=== PATIENT | female | born 1960 | race Caucasian/White ===

== ENCOUNTER 2017-03-17 18:07 | Inpatient (IN) ==
[~2017-03-17 18:07] MED LIST: LEVOFLOXACIN 250 MG/50 ML BAG IV ONE
[2017-03-17] MEDS ORDERED: LEVOFLOXACIN 500 MG/100 ML BAG IV ONE (19:00)
[2017-03-17] MEDS ORDERED: 0.9 % SODIUM CHLORIDE 1,000 ML IV ONE (19:00)
--- NOTE | 2017-03-17 19:02 | Emergency Department Note ---
General Adult HPI - General Chief complaint: Recheck/Abnormal Lab/Rx Stated complaint: Cough, chest congestion Time Seen by Provider: 03/17/17 18:52 Source: patient Mode of arrival: ambulatory Limitations: no limitations - History of Present Illness HPI Narrative: This patient had Legionella pneumonia in January and was hospitalized for it. She was treated successfully. Recently she has had more cough and congestion and was told at the pulmonary clinic that her sputum culture was positive again for Legionella. She now comes into the emergency room for treatment. She has had cough and shortness of breath for the last 2 days. - Related Data Allergies Allergy/AdvReac Type Severity Reaction Status Date / Time Hydromorphone [From Dilaudid] AdvReac Verified 03/17/17 18:10 meperidine AdvReac Verified 03/17/17 18:23 Midodrine AdvReac Verified 03/17/17 18:23 nalbuphine AdvReac Verified 03/17/17 18:23 vancomycin AdvReac Verified 03/17/17 18:23 Review of Systems Constitutional: Denies: fever, chills Eyes: Denies: eye pain ENT ED: Denies: ear pain Cardiovascular: Denies: chest pain Respiratory: Reports: cough, dyspnea Gastrointestinal: Denies: abdominal pain, nausea Genitourinary: Denies: urgency Musculoskeletal: Denies: back pain Integumentary: Denies: rash Past Medical History - Past Medical History Medical history: Reports: COPD, diabetes Surgical history ED: Reports: cholecystectomy, hysterectomy, tonsillectomy, transplant (Kidney in ) Psychiatric history: Reports: anxiety, depression Physical Exam - General Limitations: no limitations General appearance: alert, in no apparent distress - Head Head exam: atraumatic, normocephalic - Eye Eye exam: Present: normal appearance - ENT ENT exam: normal exam - Neck Neck exam: Present: normal inspection - Chest Chest inspection: Present: normal inspection - Respiratory Respiratory exam: Present: other (Scattered rhonchi) - Cardiovascular Cardiovascular exam: Present: regular rate, normal rhythm, normal heart sounds - Abdominal Exam Abdominal exam: Present: soft. Absent: distention, tenderness - Neurological Exam Neurological exam: Present: alert, oriented X3 - Psychiatric Psychiatric exam: Present: normal affect, normal mood - Skin Skin exam: Present: warm, dry, intact Course Vital Signs Temperature 97.9 F 03/17/17 18:10 Pulse Rate 85 03/17/17 18:10 Respiratory Rate 20 03/17/17 18:10 Blood Pressure 101/56 03/17/17 18:10 Pulse Oximetry (%) 94 03/17/17 18:10 Temperature 97.9 F 03/17/17 18:10 Pulse Rate 74 03/17/17 19:05 Respiratory Rate 20 03/17/17 18:10 Blood Pressure 105/67 03/17/17 19:16 Pulse Oximetry (%) 93 03/17/17 19:05 Medical Decision Making - MDM Narrative Medical decision making narrative: Apparently this patient did have a sputum culture performed and was told today that it was positive for Legionella. She was given a prescription for tetracycline but because of her renal transplant concern about renal function and the family brought her down to [facility]. Have discussed case with Dr. Serra and she will be admitted to the hospital. - Lab Data Lab results reviewed: Yes I reviewed the patient's lab results. Result diagrams: 03/17/17 19:06 03/17/17 19:06 Lab Results 03/17/17 03/17/17 Range/Units 19:06 19:06 WBC 4.8 (4.5-11.0) K/mcL RBC 3.25 L (4.00-5.20) M/mcL Hgb 10.6 L (12.0-15.0) g/dL Hct 30.9 L (36.0-48.0) % MCV 95.0 (80.0-100.0) fL MCH 32.5 (26.0-34.0) pg MCHC 34.2 (31.0-36.0) g/dL RDW 13.4 (11.5-14.5) % Plt Count 108 L (140-440) K/mcL MPV 7.4 (7.4-10.4) fL Gran % 61.6 (38.0-78.0) % Lymph % (Auto) 31.8 (15.5-49.0) % [place] % (Auto) 4.9 (1.0-12.0) % Eos % (Auto) 1.4 (0.0-7.0) % Baso % (Auto) 0.3 (0.0-2.0) % Gran # 3.0 (1.8-8.0) K/mcL Lymph # 1.5 (1.5-4.8) K/mcL [place] # 0.2 (0.1-0.9) K/mcL Eos # 0.1 (0.0-0.7) K/mcL Baso # 0 (0.0-0.3) K/mcL Sodium 138 (133-145) mmol/L Potassium 4.1 (3.3-5.1) mmol/L Chloride 100 (96-108) mmol/L Carbon Dioxide 25 (22-30) mmol/L Anion Gap 13.0 (8-16) BUN 24 H (6-20) mg/dl Creatinine 1.6 H (0.6-1.1) mg/dl GFR Calculation 35 Glucose 122 H (70-105) mg/dL Calcium 8.5 L (8.6-10.4) mg/dl Total Bilirubin 0.4 (0.0-1.0) mg/dL AST 13 (0-37) U/l ALT 8 (0-40) U/l Alkaline Phosphatase 93 (39-117) U/L Total Protein 5.4 L (5.9-8.4) gm/dL Albumin 3.2 (3.2-5.2) gm/dL Globulin 2.2 (2.2-3.7) gm/dL Albumin/Globulin Ratio 1.5 (1.0-2.3) - Radiology Data Radiology results reviewed: Yes I reviewed the patient's radiology results. Disposition Clinical Impression: Legionella pneumonia Disposition: Xfer As Inpt ([facility]) Condition: Good Referrals: Belia Tamez ARNP [Primary Care Provider] - Time of Disposition: 20:21
[2017-03-17 19:44] LABS: Basophils # (Auto) 0 K/mcL (0.0-0.3); Basophils % (Auto) 0.3 % (0.0-2.0); Eosinophils # (Auto) 0.1 K/mcL (0.0-0.7); Eosinophils % (Auto) 1.4 % (0.0-7.0); Granulocytes % (Auto) 61.6 % (38.0-78.0); Lymphocytes # (Auto) 1.5 K/mcL (1.5-4.8); Lymphocytes % (Auto) 31.8 % (15.5-49.0); Mean Corpuscular HGB Conc 34.2 g/dL (31.0-36.0); Mean Corpuscular Hemoglobin 32.5 pg (26.0-34.0); Monocytes # (Auto) 0.2 K/mcL (0.1-0.9); Monocytes % (Auto) 4.9 % (1.0-12.0); Platelet Count 108 K/mcL (140-440); RBC 3.25 M/mcL (4.00-5.20); Red Cell Distribution Width 13.4 % (11.5-14.5)
[2017-03-17 20:01] LABS: ALT/SGPT 8 U/l (0-40); Albumin 3.2 gm/dL (3.2-5.2); Albumin/Globulin Ratio 1.5 (1.0-2.3); Alkaline Phosphatase 93 U/L (39-117); Blood Urea Nitrogen 24 mg/dl (6-20)
[2017-03-17] MEDS ORDERED: MAGNESIUM SULFATE 2 GM/50 ML BAG IV PRN (22:26)
[2017-03-17] MEDS ORDERED: traZODone HCL 50 MG TABLET PO PRN (22:26)
[2017-03-17] MEDS ORDERED: POTASSIUM CHLORIDE 20 MEQ PACKET PO PRN (22:26)
[2017-03-17] MEDS ORDERED: ONDANSETRON 4 MG/2 ML VIAL IV PRN (22:26)
[2017-03-17] MEDS ORDERED: guaiFENesin/CODEINE 10 ML UDC PO PRN (22:26)
[2017-03-17] MEDS ORDERED: LEVOFLOXACIN 750 MG/150 ML BAG IV SCH (22:26)
[2017-03-17] MEDS: 0.9 % SODIUM CHLORIDE 1,000 ML IV SCH (23:28)
[2017-03-17] MEDS: 0.9 % SODIUM CHLORIDE 10 ML SYRINGE IV SCH (23:28)
[2017-03-17] MEDS ORDERED: DEXTROSE 50% 50 ML VIAL IV PRN (23:33)
[2017-03-17] MEDS ORDERED: IPRATROPIUM/ALBUTEROL 3 ML AMPUL.NEB NEB ONE (23:43)
[2017-03-17] MEDS: IPRATROPIUM/ALBUTEROL 3 ML AMPUL.NEB NEB SCH (23:52)
[2017-03-17] MEDS ORDERED: LORazepam 1 MG TABLET ONE (23:56)
[2017-03-18] MEDS ORDERED: HEPARIN 5,000 UNIT/ML VIAL ONE (00:26)
[2017-03-18] MEDS: HEPARIN 5,000 UNIT/ML VIAL SQ SCH ×3 (00:29→21:41)
--- NOTE | 2017-03-18 00:40 | History and Physical Report ---
DATE OF ADMISSION: 03/17/2017 DATE OF ADMISSION: 03/17/2017 PRIMARY SURGEON: SANTO Cardozo REASON FOR ADMISSION: Positive Legionella sputum along with cough, shortness of breath. HISTORY OF CHIEF COMPLAINTS: The patient is a 67-year-old with known history of renal transplant on immunosuppressives. She recently had an episode of Legionella pneumonia the first week of January and was treated at [facility] for a total of 21 days after initial hospitalization. She was recovering at rehab at [place]. However, over the last couple of days the patient has gotten increasingly short of breath, weak. Repeat sputum cultures at the local lab revealed Legionella and subsequently patient was advised to return to the ER. Initial workup in the ER essentially unremarkable with normal white count. However, given immunosuppressive state and shortness of breath and risk of recurrent Legionella, patient carries a high mortality/morbidity risk. Hospitalist Service was consulted. The patient was started on Levaquin 500 mg dose in the ER. At the time of examination, the patient is accompanied with her significant other. He was able to provide half to most of the questions. The patient appears significantly fatigued, lethargic, but denies chest pain. She does endorse to increasing yellow productive sputum along with fatigue, lethargy, but no fever, diarrhea, dysuria, headache, or photophobia. She denies joint swelling, rash, glandular swelling, abdominal pain, nausea, vomiting. REVIEW OF SYSTEMS: Ten-point review of systems was performed and negative except the ones discussed above. PAST MEDICAL HISTORY: 1. Renal transplant secondary to polycystic kidney disease, currently on immunosuppressives. 2. Obstructive sleep apnea. 3. Diabetes mellitus type 2. 4. Neuropathy. 5. Hyperlipidemia 6. GERD. 7. Anxiety disorder. 8. History of chronic kidney disease with baseline creatinine of 1.2. CURRENT MEDICATIONS: 1. Regular insulin sliding scale. 2. Sertraline 150 mg daily. 3. Prednisone 5 daily. 4. Lorazepam 1 every 2. 5. Tamoxifen 20 daily. 6. Pregabalin 100 3 times a day. 7. Atorvastatin 10 at bedtime. 8. Ranitidine 150 daily. 9. Omeprazole 20. 10. Amitriptyline 50. 11. Lactulose 20 grams daily. ALLERGIES: 1. VANCOMYCIN. 3. MIDODRINE. 4. MEPERIDINE. 5. HYDROMORPHONE. SOCIAL HISTORY: The patient lives along with her significant other at [place]. She smokes 1-3 cigarettes a day and carries a [id number] smoking and no history of alcoholism. She sees primary care physician, SANTO Cardozo. FAMILY HISTORY: Significant for polycystic kidney and subsequent renal transplant in sister, grandfather diabetes, and mother with diabetes and obstructive sleep apnea. PHYSICAL EXAMINATION: GENERAL: The patient is fairly obese with BMI 42.6. Height 5 feet 1 inches. VITAL SIGNS: Blood pressure 130/85, respiratory rate 20, temperature 96.9, pulse 78, saturation 90 percent on 2 liters of oxygen. HEENT: Pupils symmetric. Oral cavity is dry. No ear or nose discharge. Head is normocephalic and atraumatic. NECK: No lymphadenopathy. CHEST: S1, S2 regular rhythm. Pansystolic murmur grade 2, more accentuated at the apical area. Diminished breath sounds at bases, no late inspiratory crackles or adventitious sounds. ABDOMEN: Soft, pendulous, hernia anterior abdominal wall left middle abdomen reducible, significant fat pannus. LOWER EXTREMITIES: No cyanosis or clubbing. No joint swelling. SKIN: No suspicious lesions. PSYCHIATRIC: Fatigued, lethargic, but cooperative. NEURO: Nonfocal, moving all four extremities. LABS AND IMAGING: White count 4.8, hemoglobin 10.6, platelets 108. Lactic acid 0.8. Sodium 130, potassium 4.1, creatinine 1.6, BUN 24. LFTs unremarkable. Procalcitonin pending. Legionella pneumophila urine antigen pending. X-ray chest: No acute process. ABG 7.36/54/59 on 2 liters of oxygen. ASSESSMENT AND PLAN: A 57-year-old with recurrent Legionella pneumonia in the setting of immunocompromised state. 1. Possible Legionella pneumonia SOFA score 2. Start patient on Levaquin and target antibiotic for 21 days. Continue close hemodynamic monitoring. 2. History of renal transplant. Continue steroids/prograf. Nephrology consult. 3. History of diabetes mellitus type 2. Continue base prandial insulin. 4. Hyperlipidemia. Continue statin. 5. Anxiety disorder. Continue sertraline/lorazepam. 6. Neuropathy. Continue Lyrica/amitriptyline. 7. Admit as inpatient. Anticipated stay over 48 hours. AA:natali Job ID: [id number] Doc ID: [id number] Hayden GALLAGHER
[2017-03-18] MEDS ORDERED: IPRATROPIUM/ALBUTEROL 3 ML AMPUL.NEB NEB ONE (03:37)
[2017-03-18] MEDS: IPRATROPIUM/ALBUTEROL 3 ML AMPUL.NEB NEB SCH ×6 (03:41→23:02)
[2017-03-18] MEDS: 0.9 % SODIUM CHLORIDE 10 ML SYRINGE IV SCH ×3 (05:15→21:50)
[2017-03-18 05:18] LABS: Mean Cell Volume 95.3 fL (80.0-100.0); Mean Corpuscular HGB Conc 34.1 g/dL (31.0-36.0); Mean Corpuscular Hemoglobin 32.5 pg (26.0-34.0); Platelet Count 104 K/mcL (140-440); RBC 3.15 M/mcL (4.00-5.20); Red Cell Distribution Width 13.9 % (11.5-14.5)
[2017-03-18 05:32] LABS: ALT/SGPT 8 U/l (0-40); Albumin 3.4 gm/dL (3.2-5.2); Albumin/Globulin Ratio 1.8 (1.0-2.3); Alkaline Phosphatase 86 U/L (39-117); Bilirubin,Direct < 0.2 mg/dL (0.0-0.3); Blood Urea Nitrogen 25 mg/dl (6-20); Gamma Glutamyl Transpeptidase 16 U/L (5-36); Uric Acid 8.2 mg/dL (2.5-8.0)
[2017-03-18 06:42] LABS: Eosinophils % (Manual) 1 % (0-7); Lymphocytes % 45 % (15-49); Monocytes % (Manual) 6 % (1-12); Platelet Estimate DECREASED (NORMAL); RBC Morphology NORMAL (NORMAL); Segmented Neutrophils % 48 % (38-78)
--- NOTE | 2017-03-18 07:53 | XRay Report ---
HISTORY: Reason for Exam:cough , history of Legionaires disease FINDINGS: Prominent interstitial markings are present throughout both lungs. Lung volumes are normal. There is no consolidating infiltrate or pleural effusion. The heart size is normal. No adenopathy is detected. There is a Port-A-Cath placed into the superior vena cava. Pedicle screws are noted in the mid lumbar spine. No prior study is available for comparison. IMPRESSION: Prominent lung markings bilaterally. This is a nonspecific finding which could be due to infection, noninfectious inflammation or pulmonary vascular congestion Interpreted and Authenticated by: Flakito Polo 03/18/17
[2017-03-18] MEDS: INSULIN LISPRO 1 UNIT/0.01 ML UNIT SQ SCH ×4 (08:04→21:55)
[2017-03-18] MEDS: TAMOXIFEN 10 MG TABLET PO SCH (08:13)
[2017-03-18] MEDS: PREGABALIN 100 MG CAPSULE PO SCH ×3 (08:13→21:39)
[2017-03-18] MEDS: MAGNESIUM OXIDE 400 MG TABLET PO SCH ×3 (08:13→21:40)
[2017-03-18] MEDS: FAMOTIDINE 20 MG TABLET PO SCH (08:14)
[2017-03-18] MEDS: HYDROCHLOROTHIAZIDE 12.5 MG CAPSULE PO SCH (08:14)
[2017-03-18] MEDS: SERTRALINE 50 MG TABLET PO SCH (08:14)
[2017-03-18] MEDS: predniSONE 5 MG TABLET PO SCH (08:14)
[2017-03-18] MEDS: MULTIVIT,THER IRON,CA,FA & MIN 1 TABLET PO SCH (08:14)
[2017-03-18] MEDS: DOCUSATE SODIUM 100 MG CAPSULE PO SCH ×3 (08:14→21:39)
[2017-03-18] MEDS: morphine 30 MG TAB.SR.12H PO SCH (08:14)
[2017-03-18] MEDS: morphine 15 MG TAB.SR.12H PO SCH ×2 (08:15→21:39)
[2017-03-18] MEDS ORDERED: LACTULOSE 20 GM/30 ML ORAL.SOL PO SCH (09:00)
[2017-03-18] MEDS ORDERED: TACROLIMUS 1 MG CAPSULE PO SCH (09:00)
[2017-03-18] MEDS: PANTOPRAZOLE 40 MG TABLET PO SCH (09:36)
--- NOTE | 2017-03-18 09:52 | Internal Med Progress Note ---
Medical - PN: Subj Patient information: Note initiated : 03/18/17 at 9:48 am Service Date, if different from initiated Date: [] Patient: Betsy Dean 57 y/o F admitted on 03/17/17 for Cough, Chest Congestion/Legionella Pneumonia. Chief Complaint: [] Interval history: [birth year]-59-noal-old admitted with recurrent Legionella pneumonia. History of renal transplant on immunosuppressives. recent Legionella pneumonia last month treated on oral tetracycline. start Levaquin for 21 days. Baseline creatinine 1.2 current creatinine 1.6 03/18- patient doing well. No overnight events. No fever chills nausea vomiting or worsening SOB. continue antibiotic coverage. urine Legionella antigen pending. continue pulmonary toilet. Nephrology consult for management of immunosuppressive - Constitutional Vitals: Vital Signs Temp Pulse Resp BP Pulse Ox 97.3 F 68 18 111/76 96 03/18/17 06:14 03/18/17 07:21 03/18/17 07:21 03/18/17 06:14 03/18/17 07:21 Period Temp Pulse Resp BP Sys/Willard Pulse Ox Last 24 Hr 97.3 F-97.9 F 65-78 18-20 98-113/61-85 91-96 Intake and Output 03/17/17 03/18/17 03/18/17 21:59 05:59 13:59 Intake Total 180 / 180 Output Total 350 / 350 700 / 700 Balance -170 / -170 -700 / -700 Intake & Output: Intake & Output 03/17/17 03/18/17 03/18/17 21:59 05:59 13:59 Intake Total 180 / 180 Output Total 350 / 350 700 / 700 Balance -170 / -170 -700 / -700 Intake: Oral 180 / 180 Output: Void Amount 350 / 350 700 / 700 General appearance: no acute distress Exam: fatigued and lethargic Nonlabored breathing morbidly obese no pallor Medical - PN: Obj Da - Labs CBC & Chem 7: 03/18/17 04:14 03/18/17 04:14 Labs: Abnormal Lab Results 03/18/17 03/18/17 04:14 04:14 WBC 3.7 L RBC 3.15 L Hgb 10.2 L Hct 30.0 L Plt Count 104 L Anion Gap 7.0 L BUN 25 H Creatinine 1.5 H Uric Acid 8.2 H Calcium 8.5 L Total Protein 5.3 L Globulin 1.9 L Triglycerides 185 H Meds: Medications Acetaminophen (Tylenol) 650 mg PO Q4-6HP PRN PRN Reason: PAIN/FEVER > 101 Albuterol/Ipratropium (Duoneb) 3 ml NEB Q4HRT [facility] Last Admin: 03/18/17 07:20 Dose: 3 ml Amitriptyline HCl (Elavil) 50 mg PO HS CHANDU Atorvastatin Calcium (Lipitor) 10 mg PO HS [facility] Dextrose (Dextrose 50%) 0 ml IV UD PRN PRN Reason: Hypoglycemia Diagnostic Test (Pha) (Accu-Chek) 1 each FS ACHS [facility] Last Admin: 03/18/17 08:03 Dose: 1 each Docusate Sodium (Colace) 100 mg PO BID [facility] Last Admin: 03/18/17 08:14 Dose: 100 mg Ergocalciferol (Drisdol) 50,000 unit PO Slade@0900 [facility] Famotidine (Pepcid) 20 mg PO DAILY [facility] Last Admin: 03/18/17 08:14 Dose: 20 mg Guaifenesin/Codeine Phosphate (Robitussin Ac) 10 ml PO Q4HP PRN PRN Reason: Cough Heparin Sodium (Porcine) (Heparin) 5,000 unit SQ Q12 [facility] Last Admin: 03/18/17 08:13 Dose: 5,000 unit Hydrochlorothiazide (Oretic) 12.5 mg PO DAILY [facility] Last Admin: 03/18/17 08:14 Dose: 12.5 mg Magnesium Sulfate (Magnesium Sulfate) 2 gm in 50 mls @ 50 mls/hr IV UD PRN PRN Reason: MG = or < 1.7 Sodium Chloride (Sodium Chloride 0.9%) 1,000 mls @ 50 mls/hr IV .Q20H [facility] Stop: 03/20/17 10:25 Last Admin: 03/17/17 23:28 Dose: 50 mls/hr Levofloxacin (Levaquin) 750 mg in 150 mls @ 100 mls/hr IV Q48H [facility] Insulin Human Lispro (Humalog) 0 unit SQ ACHS CHANDU PRN Reason: Protocol Last Admin: 03/18/17 08:04 Dose: Not Given Iron Carb/Multivit/Flotation Tender Helper/Folic Acid (Multivitamin W/Minerals) 1 tab PO DAILY [facility] Last Admin: 03/18/17 08:14 Dose: 1 tab Lactulose (Cephulac) 20 gm PO Q48@2100 [facility] Lorazepam (Ativan) 1 mg PO Q12HP PRN PRN Reason: Anxiety Magnesium Oxide (Magnesium Oxide) 800 mg PO TID [facility] Last Admin: 03/18/17 08:13 Dose: 800 mg Morphine Sulfate (Ms Contin) 15 mg PO BID [facility] Last Admin: 03/18/17 08:15 Dose: 15 mg Morphine Sulfate (Ms Contin) 30 mg PO QAM [facility] Last Admin: 03/18/17 08:14 Dose: 30 mg Non-Formulary Medication (Aripiprazole [Abilify]) 2 mg PO QAM [facility] Non-Formulary Medication (Linagliptin [Tradjenta]) 5 mg PO QAM [facility] Ondansetron HCl (Zofran) 4 mg IV Q4-6HP PRN PRN Reason: Nausea And Vomiting Pantoprazole Sodium (Protonix) 40 mg PO QAMAC [facility] Last Admin: 03/18/17 09:36 Dose: 40 mg Potassium Chloride (Klor-Con) 40 meq PO DAILYP PRN PRN Reason: K+ < 3.5 Prednisone (Prednisone) 5 mg PO QAMCC [facility] Last Admin: 03/18/17 08:14 Dose: 5 mg Pregabalin (Lyrica) 100 mg PO TID [facility] Last Admin: 03/18/17 08:13 Dose: 100 mg Senna/Docusate Sodium (Senna Plus Tablet) 1 tab PO HS [facility] Last Admin: 03/18/17 00:00 Dose: Not Given Sertraline HCl (Zoloft) 150 mg PO DAILY [facility] Last Admin: 03/18/17 08:14 Dose: 150 mg Sodium Chloride (Saline Flush) 10 ml IV Q8 [facility] Last Admin: 03/18/17 05:15 Dose: Not Given Tacrolimus (Tacrolimus) 3 mg PO BID@0700,1900 [facility] Tamoxifen Citrate (Tamoxifen) 20 mg PO DAILY [facility] Last Admin: 03/18/17 08:13 Dose: 20 mg Trazodone HCl (Desyrel) 50 mg PO HSP PRN PRN Reason: Insomnia Medical - PN: A/P - Time Spent With Patient Total time spent is greater than 50% in coordination of care (as documented) at patient's floor/unit and/or counseling patient: 25 - 35 minutes (1) Legionella pneumonia Status: Acute Assessment and plan: * Legionella pneumonia-continue IV quinolone for 21 days * history of renal transplant-on immunosuppressives. nephrology consult * Chronic kidney disease-creatinine 1.5 * DM type II on basal prandial insulin/linagliptin * anxiety on sertraline/orazepam * Neuropathy and amitriptyline/pregabalin * gERD on PPI/h2 antagonist * hyperlipidemia statin * chronic pain On morphine * hTN on hydrochlorothiazide * full code Plan * continue antibiotic coverage * nephrology consult * pre-existing medical condition management as above * Possible discharge in 24 hours if clinically improved on 21 days antibiotics Current Visit: Yes Medical - PN: Qual - VTE Deep Vein Thrombosis/Pulmonary Embolism Present on Admission: No
[2017-03-18] MEDS: sitaGLIPtin 50 MG TABLET PO SCH (11:29)
[2017-03-18] MEDS: ARIPIPRAZOLE 5 MG TABLET PO SCH (11:29)
[2017-03-18] MEDS: 0.9 % SODIUM CHLORIDE 1,000 ML IV SCH (17:25)
[2017-03-18] MEDS: TACROLIMUS 1 MG CAPSULE PO SCH (19:21)
[2017-03-18] MEDS: AMITRIPTYLINE 25 MG TABLET PO SCH (21:40)
[2017-03-18] MEDS: ATORVASTATIN 20 MG TABLET PO SCH (21:40)
[2017-03-18] MEDS: SENNOSIDES/DOCUSATE SODIUM 1 TAB TABLET PO SCH ×2 (21:41)
[2017-03-19] MEDS: IPRATROPIUM/ALBUTEROL 3 ML AMPUL.NEB NEB SCH ×6 (03:51→22:29)
[2017-03-19] MEDS: 0.9 % SODIUM CHLORIDE 10 ML SYRINGE IV SCH ×3 (04:47→21:10)
[2017-03-19 06:00] LABS: Mean Cell Volume 95.6 fL (80.0-100.0); Mean Corpuscular HGB Conc 33.8 g/dL (31.0-36.0); Mean Corpuscular Hemoglobin 32.4 pg (26.0-34.0); Platelet Count 104 K/mcL (140-440); RBC 3.11 M/mcL (4.00-5.20); Red Cell Distribution Width 13.9 % (11.5-14.5)
[2017-03-19 06:24] LABS: ALT/SGPT 9 U/l (0-40); Albumin/Globulin Ratio 1.3 (1.0-2.3); Alkaline Phosphatase 95 U/L (39-117); Bilirubin,Direct < 0.2 mg/dL (0.0-0.3); Blood Urea Nitrogen 26 mg/dl (6-20); Gamma Glutamyl Transpeptidase 18 U/L (5-36); Magnesium 1.9 mg/dL (1.6-2.5); Uric Acid 8.6 mg/dL (2.5-8.0)
[2017-03-19 07:36] LABS: Eosinophils % (Manual) 2 % (0-7); Lymphocytes % 40 % (15-49); Monocytes % (Manual) 4 % (1-12); Platelet Estimate NORMAL (NORMAL); RBC Morphology NORMAL (NORMAL); Segmented Neutrophils % 54 % (38-78)
[2017-03-19] MEDS: TACROLIMUS 1 MG CAPSULE PO SCH ×2 (07:59→19:18)
[2017-03-19] MEDS: INSULIN LISPRO 1 UNIT/0.01 ML UNIT SQ SCH ×4 (08:15→21:16)
[2017-03-19] MEDS: PANTOPRAZOLE 40 MG TABLET PO SCH (08:16)
[2017-03-19] MEDS: predniSONE 5 MG TABLET PO SCH (08:16)
[2017-03-19] MEDS: ARIPIPRAZOLE 5 MG TABLET PO SCH (08:16)
[2017-03-19] MEDS: DOCUSATE SODIUM 100 MG CAPSULE PO SCH ×2 (08:16→21:07)
[2017-03-19] MEDS: morphine 15 MG TAB.SR.12H PO SCH ×2 (08:17→21:08)
[2017-03-19] MEDS: sitaGLIPtin 50 MG TABLET PO SCH (08:17)
[2017-03-19] MEDS: morphine 30 MG TAB.SR.12H PO SCH (08:17)
[2017-03-19] MEDS: PREGABALIN 100 MG CAPSULE PO SCH ×3 (08:17→21:19)
[2017-03-19] MEDS: MAGNESIUM OXIDE 400 MG TABLET PO SCH ×3 (08:17→21:08)
[2017-03-19] MEDS: HYDROCHLOROTHIAZIDE 12.5 MG CAPSULE PO SCH (08:18)
[2017-03-19] MEDS: MULTIVIT,THER IRON,CA,FA & MIN 1 TABLET PO SCH (08:18)
[2017-03-19] MEDS: FAMOTIDINE 20 MG TABLET PO SCH (08:19)
[2017-03-19] MEDS: TAMOXIFEN 10 MG TABLET PO SCH (08:19)
[2017-03-19] MEDS: SERTRALINE 50 MG TABLET PO SCH (08:19)
--- NOTE | 2017-03-19 09:02 | XRay Report ---
HISTORY: Reason for Exam:Interval Change , cough and nonspecific interstitial pulmonary disease FINDINGS: There are worsening bilateral interstitial opacities throughout both lungs. There is no lobar consolidation or pleural effusion. The heart size is normal. IMPRESSION: Worsening interstitial infiltrates bilaterally which could be due to pneumonia, hypersensitivity reaction or congestive heart failure Interpreted and Authenticated by: Flakito Polo 03/19/17
[2017-03-19] MEDS: HEPARIN 5,000 UNIT/ML VIAL SQ SCH (10:35)
[2017-03-19] MEDS: LEVOFLOXACIN 750 MG/150 ML BAG IV SCH (10:53)
[2017-03-19] MEDS: 0.9 % SODIUM CHLORIDE 1,000 ML IV SCH ×2 (15:21→21:11)
[2017-03-19] MEDS: ACETAMINOPHEN 325 MG TABLET PO PRN (16:05)
[2017-03-19] MEDS ORDERED: FONDAPARINUX SODIUM 2.5 MG/0.5 ML SYRINGE IV ONE (16:38)
[2017-03-19] MEDS: LACTULOSE 20 GM/30 ML ORAL.SOL PO SCH (21:07)
[2017-03-19] MEDS: ATORVASTATIN 20 MG TABLET PO SCH (21:07)
[2017-03-19] MEDS: AMITRIPTYLINE 25 MG TABLET PO SCH (21:08)
[2017-03-19] MEDS: SENNOSIDES/DOCUSATE SODIUM 1 TAB TABLET PO SCH (21:08)
[2017-03-20] MEDS: IPRATROPIUM/ALBUTEROL 3 ML AMPUL.NEB NEB SCH ×6 (03:01→23:35)
[2017-03-20 04:33] LABS: Mean Cell Volume 94.7 fL (80.0-100.0); Mean Corpuscular HGB Conc 34.5 g/dL (31.0-36.0); Mean Corpuscular Hemoglobin 32.6 pg (26.0-34.0); Platelet Count 107 K/mcL (140-440); RBC 3.05 M/mcL (4.00-5.20); Red Cell Distribution Width 13.8 % (11.5-14.5)
[2017-03-20 04:44] LABS: ALT/SGPT 10 U/l (0-40); Albumin 3.3 gm/dL (3.2-5.2); Albumin/Globulin Ratio 1.4 (1.0-2.3); Alkaline Phosphatase 95 U/L (39-117); Bilirubin,Direct < 0.2 mg/dL (0.0-0.3); Blood Urea Nitrogen 23 mg/dl (6-20); Gamma Glutamyl Transpeptidase 19 U/L (5-36); Magnesium 1.9 mg/dL (1.6-2.5); Uric Acid 7.6 mg/dL (2.5-8.0)
[2017-03-20] MEDS: 0.9 % SODIUM CHLORIDE 10 ML SYRINGE IV SCH ×3 (05:07→21:01)
[2017-03-20 05:21] LABS: Band Neutrophils % 3 % (0-10); Lymphocytes % 38 % (15-49); Platelet Estimate DECREASED (NORMAL); RBC Morphology NORMAL (NORMAL); Segmented Neutrophils % 59 % (38-78)
[2017-03-20] MEDS: TACROLIMUS 1 MG CAPSULE PO SCH ×2 (07:03→18:42)
[2017-03-20] MEDS: PANTOPRAZOLE 40 MG TABLET PO SCH (07:03)
[2017-03-20] MEDS: predniSONE 5 MG TABLET PO SCH (07:04)
[2017-03-20] MEDS: INSULIN LISPRO 1 UNIT/0.01 ML UNIT SQ SCH ×4 (07:27→20:59)
[2017-03-20] MEDS: ARIPIPRAZOLE 5 MG TABLET PO SCH (08:27)
[2017-03-20] MEDS: FAMOTIDINE 20 MG TABLET PO SCH (08:28)
[2017-03-20] MEDS: HYDROCHLOROTHIAZIDE 12.5 MG CAPSULE PO SCH (08:29)
[2017-03-20] MEDS: DOCUSATE SODIUM 100 MG CAPSULE PO SCH ×2 (08:30→20:45)
[2017-03-20] MEDS: MULTIVIT,THER IRON,CA,FA & MIN 1 TABLET PO SCH (08:30)
[2017-03-20] MEDS: MAGNESIUM OXIDE 400 MG TABLET PO SCH ×3 (08:30→21:00)
[2017-03-20] MEDS: SERTRALINE 50 MG TABLET PO SCH (08:30)
[2017-03-20] MEDS: sitaGLIPtin 50 MG TABLET PO SCH (08:30)
[2017-03-20] MEDS: morphine 30 MG TAB.SR.12H PO SCH (08:31)
[2017-03-20] MEDS: TAMOXIFEN 10 MG TABLET PO SCH (08:31)
[2017-03-20] MEDS ORDERED: ERGOCALCIFEROL (VITAMIN D2) 50,000 UNIT CAPSULE PO SCH (09:00)
--- NOTE | 2017-03-20 09:16 | Internal Med Progress Note ---
Medical - PN: Subj Patient information: Note initiated : 03/19/17 at 11:13 am Patient: Betsy Dean 57 y/o F admitted on 03/17/17 for Cough, Chest Congestion/Legionella Pneumonia. Chief Complaint: Interval history: 03/[id number]-dibg-old admitted with recurrent Legionella pneumonia. History of renal transplant on immunosuppressives. recent Legionella pneumonia last month treated on oral tetracycline. start Levaquin for 21 days. Baseline creatinine 1.2 current creatinine 1.6 03/18- patient doing well. No overnight events. No fever chills nausea vomiting or worsening SOB. continue antibiotic coverage. urine Legionella antigen pending. continue pulmonary toilet. Nephrology consult for management of immunosuppressives 03/19- patient feeling better. Klebsiella oxytoca on sputum culture. Legionella antigen pending. Continue Levaquin. White count downtrending. Feels a lot better. Ongoing physical therapy. creatinine down to 1.5 - Constitutional Vitals: Vital Signs Temp Pulse Resp BP Pulse Ox 97.3 F 68 20 138/87 93 03/20/17 07:10 03/20/17 07:07 03/20/17 08:00 03/20/17 07:10 03/20/17 07:10 Period Temp Pulse Resp BP Sys/Willard Pulse Ox Last 24 Hr 97.0 F-98.0 F 67-77 16-22 108-144/70-87 93-97 Intake and Output 03/19/17 03/20/17 03/20/17 21:59 05:59 13:59 Intake Total 780 / 780 0 / 0 600 / 600 Output Total 300 / 300 800 / 800 Balance 480 / 480 -800 / -800 600 / 600 Weight 260 lb Intake & Output: Intake & Output 03/19/17 03/20/17 03/20/17 21:59 05:59 13:59 Intake Total 780 / 780 0 / 0 600 / 600 Output Total 300 / 300 800 / 800 Balance 480 / 480 -800 / -800 600 / 600 Weight 260 lb Intake: Oral 780 / 780 0 / 0 600 / 600 Output: Void Amount 300 / 300 800 / 800 Other: Meal Chocolate pudding and 2 pkgs Juanito crackers Breakfast Percent of Meal Consumed 100% 100% Feeding Ability Independent # Voids 1 General appearance: morbidly obese, no acute distress Exam: Alert oriented nonlabored breathing Left posterior chest minimal crackles Obese Medical - PN: Obj Da - Labs CBC & Chem 7: 03/20/17 03:35 03/20/17 03:35 Labs: Abnormal Lab Results 03/20/17 03/20/17 03/19/17 03:35 03:35 04:30 WBC 2.3 L RBC 3.05 L Hgb 10.0 L Hct 28.9 L Plt Count 107 L MPV 7.2 L Anion Gap 7.0 L BUN 23 H 26 H Creatinine 1.4 H 1.5 H Glucose 133 H 140 H Uric Acid 8.6 H Calcium 8.5 L Total Protein 5.7 L 5.4 L Albumin 3.0 L Globulin Triglycerides 180 H 167 H 03/19/17 03/18/17 03/18/17 04:30 04:14 04:14 WBC 2.7 L 3.7 L RBC 3.11 L 3.15 L Hgb 10.1 L 10.2 L Hct 29.8 L 30.0 L Plt Count 104 L 104 L MPV Anion Gap 7.0 L BUN 25 H Creatinine 1.5 H Glucose Uric Acid 8.2 H Calcium 8.5 L Total Protein 5.3 L Albumin Globulin 1.9 L Triglycerides 185 H Meds: Medications Acetaminophen (Tylenol) 650 mg PO Q4-6HP PRN PRN Reason: PAIN/FEVER > 101 Last Admin: 03/19/17 16:05 Dose: 650 mg Albuterol/Ipratropium (Duoneb) 3 ml NEB Q4HRT [facility] Last Admin: 03/20/17 07:07 Dose: 3 ml Amitriptyline HCl (Elavil) 50 mg PO HS [facility] Last Admin: 03/19/17 21:08 Dose: 50 mg Atorvastatin Calcium (Lipitor) 10 mg PO HS [facility] Last Admin: 03/19/17 21:07 Dose: 10 mg Dextrose (Dextrose 50%) 0 ml IV UD PRN PRN Reason: Hypoglycemia Diagnostic Test (Pha) (Accu-Chek) 1 each FS ACHS [facility] Last Admin: 03/20/17 07:06 Dose: 1 each Docusate Sodium (Colace) 100 mg PO BID [facility] Last Admin: 03/20/17 08:30 Dose: Not Given Ergocalciferol (Drisdol) 50,000 unit PO Slade@0900 [facility] Famotidine (Pepcid) 20 mg PO DAILY [facility] Last Admin: 03/20/17 08:28 Dose: 20 mg Fondaparinux (Arixtra) 2.5 mg SQ DAILY [facility] Guaifenesin/Codeine Phosphate (Robitussin Ac) 10 ml PO Q4HP PRN PRN Reason: Cough Hydrochlorothiazide (Oretic) 12.5 mg PO DAILY [facility] Last Admin: 03/20/17 08:29 Dose: 12.5 mg Magnesium Sulfate (Magnesium Sulfate) 2 gm in 50 mls @ 50 mls/hr IV UD PRN PRN Reason: MG = or < 1.7 Sodium Chloride (Sodium Chloride 0.9%) 1,000 mls @ 50 mls/hr IV .Q20H [facility] Stop: 03/20/17 10:25 Last Admin: 03/19/17 21:11 Dose: 50 mls/hr Levofloxacin (Levaquin) 750 mg in 150 mls @ 100 mls/hr IV Q48H [facility] Last Admin: 03/19/17 10:53 Dose: 100 mls/hr Insulin Human Lispro (Humalog) 0 unit SQ ACHS [facility] PRN Reason: Protocol Last Admin: 03/20/17 07:27 Dose: Not Given Iron Carb/Multivit/[employer]/Folic Acid (Multivitamin W/Minerals) 1 tab PO DAILY [facility] Last Admin: 03/20/17 08:30 Dose: 1 tab Lactulose (Cephulac) 20 gm PO Q48@2100 [facility] Last Admin: 03/19/17 21:07 Dose: 20 gm Lorazepam (Ativan) 1 mg PO Q12HP PRN PRN Reason: Anxiety Magnesium Oxide (Magnesium Oxide) 800 mg PO TID [facility] Last Admin: 03/20/17 08:30 Dose: 800 mg Morphine Sulfate (Ms Contin) 30 mg PO QAM [facility] Last Admin: 03/20/17 08:31 Dose: 30 mg Morphine Sulfate (Ms Contin) 15 mg PO BID@1200,2100 [facility] Last Admin: 03/19/17 21:08 Dose: 15 mg Ondansetron HCl (Zofran) 4 mg IV Q4-6HP PRN PRN Reason: Nausea And Vomiting Pantoprazole Sodium (Protonix) 40 mg PO QAMAC [facility] Last Admin: 03/20/17 07:03 Dose: 40 mg Potassium Chloride (Klor-Con) 40 meq PO DAILYP PRN PRN Reason: K+ < 3.5 Prednisone (Prednisone) 5 mg PO QAC [facility] Last Admin: 03/20/17 07:04 Dose: 5 mg Pregabalin (Lyrica) 100 mg PO TID [facility] Last Admin: 03/19/17 21:19 Dose: 100 mg Senna/Docusate Sodium (Senna Plus Tablet) 1 tab PO HS [facility] Last Admin: 03/19/17 21:08 Dose: 1 tab Sertraline HCl (Zoloft) 150 mg PO DAILY [facility] Last Admin: 03/20/17 08:30 Dose: 150 mg Sitagliptin Phosphate (Januvia) 50 mg PO DAILY [facility] Last Admin: 03/20/17 08:30 Dose: 50 mg Sodium Chloride (Saline Flush) 10 ml IV Q8 [facility] Last Admin: 03/20/17 05:07 Dose: Not Given Tacrolimus (Tacrolimus) 3 mg PO BID@0700,1900 [facility] Last Admin: 03/20/17 07:03 Dose: 3 mg Tamoxifen Citrate (Tamoxifen) 20 mg PO DAILY [facility] Last Admin: 03/20/17 08:31 Dose: 20 mg Trazodone HCl (Desyrel) 50 mg PO HSP PRN PRN Reason: Insomnia Last Admin: 03/18/17 23:53 Dose: 50 mg Medical - PN: A/P - Time Spent With Patient Total time spent is greater than 50% in coordination of care (as documented) at patient's floor/unit and/or counseling patient: 25 - 35 minutes (1) Legionella pneumonia Status: Acute Assessment and plan: * history of Legionella pneumonia-continue IV quinolone, however sputum cultures from [place] reveals Klebsiella. continue antibiotic coverage. Await Legionella repeat urine antigen * history of renal transplant-on immunosuppressives. nephrology on board * Chronic kidney disease-creatinine 1.5 * DM type II on basal prandial insulin/linagliptin * anxiety on sertraline/orazepam * Neuropathy and amitriptyline/pregabalin * gERD on PPI/h2 antagonist * hyperlipidemia statin * chronic pain On morphine * hTN on hydrochlorothiazide * full code Plan * continue antibiotic coverage * await further testing for Legionella * renal issues/transplant meds management per nephrology * pre-existing medical condition management as above Current Visit: Yes Medical - PN: Qual - VTE Deep Vein Thrombosis/Pulmonary Embolism Present on Admission: No
--- NOTE | 2017-03-20 09:21 | Internal Med Progress Note ---
Medical - PN: Subj Patient information: Note initiated : 03/20/17 at 9:18 am Service Date, if different from initiated Date: [] Patient: Betsy Dean 57 y/o F admitted on 03/17/17 for Cough, Chest Congestion/Legionella Pneumonia. Chief Complaint: [] Interval history: 03/1788-60-dyzw-old admitted with recurrent Legionella pneumonia. History of renal transplant on immunosuppressives. recent Legionella pneumonia last month treated on oral tetracycline. start Levaquin for 21 days. Baseline creatinine 1.2 current creatinine 1.6 03/18- patient doing well. No overnight events. No fever chills nausea vomiting or worsening SOB. continue antibiotic coverage. urine Legionella antigen pending. continue pulmonary toilet. Nephrology consult for management of immunosuppressives 03/19- patient feeling better. Klebsiella oxytoca on sputum culture. Legionella antigen pending. Continue Levaquin. White count downtrending. Feels a lot better. Ongoing physical therapy. creatinine down to 1.5 03/20-patient doing well. No overnight events. Feels fatigued and lethargic. Ongoing physical therapy. creatinine 1.4. Possible discharge in 24 hours. no significant changes since previous day. - Constitutional Vitals: Vital Signs Temp Pulse Resp BP Pulse Ox 97.3 F 68 20 138/87 93 03/20/17 07:10 03/20/17 07:07 03/20/17 08:00 03/20/17 07:10 03/20/17 07:10 Period Temp Pulse Resp BP Sys/Willard Pulse Ox Last 24 Hr 97.0 F-98.0 F 67-77 16-22 108-144/70-87 93-97 Intake and Output 03/19/17 03/20/17 03/20/17 21:59 05:59 13:59 Intake Total 780 / 780 0 / 0 600 / 600 Output Total 300 / 300 800 / 800 Balance 480 / 480 -800 / -800 600 / 600 Weight 260 lb Intake & Output: Intake & Output 03/19/17 03/20/17 03/20/17 21:59 05:59 13:59 Intake Total 780 / 780 0 / 0 600 / 600 Output Total 300 / 300 800 / 800 Balance 480 / 480 -800 / -800 600 / 600 Weight 260 lb Intake: Oral 780 / 780 0 / 0 600 / 600 Output: Void Amount 300 / 300 800 / 800 Other: Meal Chocolate pudding and 2 pkgs Juanito crackers Breakfast Percent of Meal Consumed 100% 100% Feeding Ability Independent # Voids 1 General appearance: cooperative, no acute distress Exam: Alert and oriented nonlabored breathing nondistended abdomen Medical - PN: Obj Da - Labs CBC & Chem 7: 03/20/17 03:35 03/20/17 03:35 Labs: Abnormal Lab Results 03/20/17 03/20/17 03/19/17 03:35 03:35 04:30 WBC 2.3 L RBC 3.05 L Hgb 10.0 L Hct 28.9 L Plt Count 107 L MPV 7.2 L Anion Gap 7.0 L BUN 23 H 26 H Creatinine 1.4 H 1.5 H Glucose 133 H 140 H Uric Acid 8.6 H Calcium 8.5 L Total Protein 5.7 L 5.4 L Albumin 3.0 L Globulin Triglycerides 180 H 167 H 03/19/17 03/18/17 03/18/17 04:30 04:14 04:14 WBC 2.7 L 3.7 L RBC 3.11 L 3.15 L Hgb 10.1 L 10.2 L Hct 29.8 L 30.0 L Plt Count 104 L 104 L MPV Anion Gap 7.0 L BUN 25 H Creatinine 1.5 H Glucose Uric Acid 8.2 H Calcium 8.5 L Total Protein 5.3 L Albumin Globulin 1.9 L Triglycerides 185 H Meds: Medications Acetaminophen (Tylenol) 650 mg PO Q4-6HP PRN PRN Reason: PAIN/FEVER > 101 Last Admin: 03/19/17 16:05 Dose: 650 mg Albuterol/Ipratropium (Duoneb) 3 ml NEB Q4HRT [facility] Last Admin: 03/20/17 07:07 Dose: 3 ml Amitriptyline HCl (Elavil) 50 mg PO HS [facility] Last Admin: 03/19/17 21:08 Dose: 50 mg Atorvastatin Calcium (Lipitor) 10 mg PO HS [facility] Last Admin: 03/19/17 21:07 Dose: 10 mg Dextrose (Dextrose 50%) 0 ml IV UD PRN PRN Reason: Hypoglycemia Diagnostic Test (Pha) (Accu-Chek) 1 each FS ACHS [facility] Last Admin: 03/20/17 07:06 Dose: 1 each Docusate Sodium (Colace) 100 mg PO BID [facility] Last Admin: 03/20/17 08:30 Dose: Not Given Ergocalciferol (Drisdol) 50,000 unit PO Slade@0900 [facility] Famotidine (Pepcid) 20 mg PO DAILY [facility] Last Admin: 03/20/17 08:28 Dose: 20 mg Fondaparinux (Arixtra) 2.5 mg SQ DAILY [facility] Guaifenesin/Codeine Phosphate (Robitussin Ac) 10 ml PO Q4HP PRN PRN Reason: Cough Hydrochlorothiazide (Oretic) 12.5 mg PO DAILY [facility] Last Admin: 03/20/17 08:29 Dose: 12.5 mg Magnesium Sulfate (Magnesium Sulfate) 2 gm in 50 mls @ 50 mls/hr IV UD PRN PRN Reason: MG = or < 1.7 Sodium Chloride (Sodium Chloride 0.9%) 1,000 mls @ 50 mls/hr IV .Q20H [facility] Stop: 03/20/17 10:25 Last Admin: 03/19/17 21:11 Dose: 50 mls/hr Levofloxacin (Levaquin) 750 mg in 150 mls @ 100 mls/hr IV Q48H [facility] Last Admin: 03/19/17 10:53 Dose: 100 mls/hr Insulin Human Lispro (Humalog) 0 unit SQ ACHS [facility] PRN Reason: Protocol Last Admin: 03/20/17 07:27 Dose: Not Given Iron Carb/Multivit/[place]/Folic Acid (Multivitamin W/Minerals) 1 tab PO DAILY [facility] Last Admin: 03/20/17 08:30 Dose: 1 tab Lactulose (Cephulac) 20 gm PO Q48@2100 [facility] Last Admin: 03/19/17 21:07 Dose: 20 gm Lorazepam (Ativan) 1 mg PO Q12HP PRN PRN Reason: Anxiety Magnesium Oxide (Magnesium Oxide) 800 mg PO TID [facility] Last Admin: 03/20/17 08:30 Dose: 800 mg Morphine Sulfate (Ms Contin) 30 mg PO QAM [facility] Last Admin: 03/20/17 08:31 Dose: 30 mg Morphine Sulfate (Ms Contin) 15 mg PO BID@1200,2100 [facility] Last Admin: 03/19/17 21:08 Dose: 15 mg Ondansetron HCl (Zofran) 4 mg IV Q4-6HP PRN PRN Reason: Nausea And Vomiting Pantoprazole Sodium (Protonix) 40 mg PO QAMAC [facility] Last Admin: 03/20/17 07:03 Dose: 40 mg Potassium Chloride (Klor-Con) 40 meq PO DAILYP PRN PRN Reason: K+ < 3.5 Prednisone (Prednisone) 5 mg PO QAC [facility] Last Admin: 03/20/17 07:04 Dose: 5 mg Pregabalin (Lyrica) 100 mg PO TID [facility] Last Admin: 03/19/17 21:19 Dose: 100 mg Senna/Docusate Sodium (Senna Plus Tablet) 1 tab PO HS [facility] Last Admin: 03/19/17 21:08 Dose: 1 tab Sertraline HCl (Zoloft) 150 mg PO DAILY [facility] Last Admin: 03/20/17 08:30 Dose: 150 mg Sitagliptin Phosphate (Januvia) 50 mg PO DAILY [facility] Last Admin: 03/20/17 08:30 Dose: 50 mg Sodium Chloride (Saline Flush) 10 ml IV Q8 [facility] Last Admin: 03/20/17 05:07 Dose: Not Given Tacrolimus (Tacrolimus) 3 mg PO BID@0700,1900 [facility] Last Admin: 03/20/17 07:03 Dose: 3 mg Tamoxifen Citrate (Tamoxifen) 20 mg PO DAILY [facility] Last Admin: 03/20/17 08:31 Dose: 20 mg Trazodone HCl (Desyrel) 50 mg PO HSP PRN PRN Reason: Insomnia Last Admin: 03/18/17 23:53 Dose: 50 mg Medical - PN: A/P - Time Spent With Patient Total time spent is greater than 50% in coordination of care (as documented) at patient's floor/unit and/or counseling patient: 15 - 24 minutes (1) Legionella pneumonia Status: Acute Assessment and plan: * bilateral interstitial pneumonia with recent history of Legionella pneumonia- continue IV quinolone, however sputum cultures from [place] reveals Klebsiella. continue antibiotic coverage. Await Legionella repeat urine antigen. start IV diuretics. Extend antibiotic coverage with Rocephin * Renal transplant-on immunosuppressives. nephrology on board * Chronic kidney disease-creatinine 1.4 around baseline * DM type II on basal prandial insulin/linagliptin * anxiety on sertraline/orazepam * Neuropathy and amitriptyline/pregabalin * gERD on PPI/h2 antagonist * hyperlipidemia statin * chronic pain On morphine * HTN on hydrochlorothiazide * full code Plan * extend ABX coverage on Rocephin * IV diuretics * Repeat chest imaging in a.m. * await further testing for Legionella * renal issues/transplant meds management per nephrology * pre-existing medical condition management as above * possible discharge in 24 hours Current Visit: Yes Medical - PN: Qual - VTE Deep Vein Thrombosis/Pulmonary Embolism Present on Admission: No
[2017-03-20] MEDS: FONDAPARINUX SODIUM 2.5 MG/0.5 ML SYRINGE SQ SCH (10:41)
[2017-03-20] MEDS: cefTRIAXone 2 GM in DEXTROSE 5% IN WATER 50 ML IV SCH (10:42)
[2017-03-20] MEDS: FUROSEMIDE 20 MG/2 ML VIAL IV SCH ×2 (10:42→20:59)
[2017-03-20] MEDS: PREGABALIN 100 MG CAPSULE PO SCH ×3 (10:42→20:59)
[2017-03-20] MEDS: morphine 15 MG TAB.SR.12H PO SCH ×2 (11:26→21:00)
[2017-03-20] MEDS ORDERED: FILGRASTIM 300 MCG/ML VIAL SQ ONE (12:49)
[2017-03-20] MEDS ORDERED: FILGRASTIM 300 MCG/ML VIAL SQ SCH (13:00)
[2017-03-20] MEDS: SENNOSIDES/DOCUSATE SODIUM 1 TAB TABLET PO SCH (20:45)
[2017-03-20] MEDS: AMITRIPTYLINE 25 MG TABLET PO SCH (21:00)
[2017-03-20] MEDS: ATORVASTATIN 20 MG TABLET PO SCH (21:00)
[2017-03-21] MEDS: IPRATROPIUM/ALBUTEROL 3 ML AMPUL.NEB NEB SCH ×6 (02:39→22:59)
[2017-03-21 04:46] LABS: Mean Cell Volume 95.6 fL (80.0-100.0); Mean Corpuscular Hemoglobin 32.5 pg (26.0-34.0); Platelet Count 113 K/mcL (140-440); RBC 3.15 M/mcL (4.00-5.20); Red Cell Distribution Width 13.9 % (11.5-14.5)
[2017-03-21 05:15] LABS: ALT/SGPT 12 U/l (0-40); Albumin 3.3 gm/dL (3.2-5.2); Albumin/Globulin Ratio 1.4 (1.0-2.3); Alkaline Phosphatase 110 U/L (39-117); Bilirubin,Direct < 0.2 mg/dL (0.0-0.3); Blood Urea Nitrogen 24 mg/dl (6-20); Gamma Glutamyl Transpeptidase 21 U/L (5-36); Magnesium 1.7 mg/dL (1.6-2.5); Uric Acid 8.5 mg/dL (2.5-8.0)
[2017-03-21] MEDS: 0.9 % SODIUM CHLORIDE 10 ML SYRINGE IV SCH ×3 (05:19→20:48)
[2017-03-21 05:46] LABS: Band Neutrophils % 7 % (0-10); Lymphocytes % 11 % (15-49); Monocytes % (Manual) 5 % (1-12); Platelet Estimate DECREASED (NORMAL); RBC Morphology NORMAL (NORMAL); Segmented Neutrophils % 77 % (38-78)
--- NOTE | 2017-03-21 07:22 | Consultation ---
DATE OF CONSULTATION: 03/18/2017 REFERRING PHYSICIAN: Dr. Hayden Armas. REASON FOR HOSPITALIZATION: Acute kidney injury in a transplant patient. The patient is a 67-year-old female who has a history of renal transplantation done in 2008. She has been followed by the physicians at [facility] for the last 2 years and then she moved over to the [facility] because of the long distance commute. She has done fairly well with baseline serum creatinines of about 1.2. Recently she was hospitalized in the first week of January at [facility] with presumed Legionella pneumonia. She received doxycycline for 21 days after the hospitalization and she was in rehab at [place]. Over the last couple of days she got increasingly short of breath, weak and apparently the repeat sputum cultures at the local lab revealed Legionella and subsequently the patient was transferred to the ER. In the emergency room, she had normal white count. She had a sepsis workup which suggested that she is not septic. For those reasons, she is hospitalized. On admission, her serum creatinine was found to be 1.6, which had gotten better a little bit at 1.5 today. Her electrolytes were normal. Her calcium has been 8.5. Uric acid was 8.2. For these reasons, a renal consultation was obtained. PAST MEDICAL HISTORY: Significant for: 1. History of renal transplantation secondary to polycystic kidney disease done at [facility] in 2008. She was initially followed by [facility] and subsequently switched over to [facility]. She was in the process of transferring her care [place] and I was scheduled to see her 03/23/2017 at the office. She has been on tacrolimus. I have requested the records. 2. Obstructive sleep apnea. 3. Type 2 diabetes. 4. Neuropathy. 5. Hyperlipidemia. 6. Gastroesophageal reflux disease. 7. Anxiety disorder. MEDICATIONS ON ADMISSION: Prednisone 5 mg daily. Tacrolimus 3 mg by mouth twice daily. Insulin sliding scale. Sertraline 150 mg daily. Lorazepam as needed. Tamoxifen 20 mg daily. Pregabalin 100 mg 3 times daily. Atorvastatin 10 mg at bedtime. Omeprazole 20 mg daily. Amitriptyline 50 mg daily. Lactulose 20 mg daily. ALLERGIES: She is allergic to VANCOMYCIN, MIDODRINE MEPIRIDINE and HYDROMORPHONE. SOCIAL HISTORY: The patient lives with her significant other at [place]. She smokes one to three cigarettes a day and carries a [id number] history of smoking. No history of alcohol use. She has been followed by [facility]. FAMILY HISTORY: Significant for polycystic kidney disease and subsequent kidney transplant. Sister and grandfather had diabetes. Mother had diabetes and obstructive sleep apnea. REVIEW OF SYSTEMS: Ten systems are reviewed as in history of present illness. She is mildly short of breath. She does have a puffy face as well. PHYSICAL EXAMINATION: GENERAL: She is mild to moderately short of breath. Her BMI is 42.6. She is 5 foot 1 inch. VITAL SIGNS: Blood pressure 147/82 with a pulse rate of 85, respiratory rate of 22 with an O2 sat of 96 percent on 2 liters. HEENT: NCAT. PERRLA. EOMI. PERRLA. No cyanosis and no icterus. Fundus examination is not performed. External ears and tympanic membranes appear normal. Oral cavity with normal mucosa. NECK: Supple. No jugular venous distention. No lymphadenopathy. No thyromegaly. No carotid bruits. Her face does look somewhat cruz shaped. LUNGS: Decreased air entry bilaterally. I did not hear any additional sounds. CARDIAC: S1, S2 heard. No S3, S4. No murmurs. No rubs. ABDOMEN: Slightly distended, nontender. No organomegaly. Positive bowel sounds. No mass. No rebound. EXTREMITIES: Showed 1+ edema, palpable dorsalis pedis and posterior tibials. No skin rash or joint swellings noted. NEUROLOGIC: Grossly intact. LABORATORY DATA: White count is 4.8 with a hemoglobin of 10.6 and a platelet count of 108. Sodium 142, potassium 4.1, chloride of 105, CO2 of 30, BUN of 25, creatinine of 1.5, calcium is 8.5. C-reactive protein is 2.3. ASSESSMENT AND PLAN: 1. Status post renal transplant in 2008 with stable allograft function with a baseline serum creatinine of 1.2. Now she has acute kidney injury possibly related to pneumonia. Apparently when she was at [facility] her serum creatinine was 2.5. Now it is steadily declining. I will check her blood for CMV as well as BK viruses. We will also obtain a trough of the tacrolimus levels. We will follow her renal function closely. 2. Legionella pneumonia. She is currently on Levaquin. It has been renally dosed. 3. Anemia. I will check iron studies. Thank you, Dr. Armas, for referring this patient for a consultation. I will follow with you. RONALD:bhargavi Job ID: [id number] Doc ID: [id number] Darrin [facility]
[2017-03-21] MEDS: TACROLIMUS 1 MG CAPSULE PO SCH ×2 (07:31→18:45)
[2017-03-21] MEDS: MAGNESIUM OXIDE 400 MG TABLET PO SCH ×3 (07:32→20:47)
[2017-03-21] MEDS: PANTOPRAZOLE 40 MG TABLET PO SCH (07:32)
[2017-03-21] MEDS: predniSONE 5 MG TABLET PO SCH (07:32)
[2017-03-21] MEDS: DOCUSATE SODIUM 100 MG CAPSULE PO SCH ×2 (07:33→20:47)
[2017-03-21] MEDS: HYDROCHLOROTHIAZIDE 12.5 MG CAPSULE PO SCH (07:33)
[2017-03-21] MEDS: TAMOXIFEN 10 MG TABLET PO SCH (07:33)
[2017-03-21] MEDS: FUROSEMIDE 20 MG/2 ML VIAL IV SCH ×2 (07:33→20:46)
[2017-03-21] MEDS: SERTRALINE 50 MG TABLET PO SCH (07:33)
[2017-03-21] MEDS: morphine 30 MG TAB.SR.12H PO SCH (07:33)
[2017-03-21] MEDS: MULTIVIT,THER IRON,CA,FA & MIN 1 TABLET PO SCH (07:33)
[2017-03-21] MEDS: sitaGLIPtin 50 MG TABLET PO SCH (07:33)
[2017-03-21] MEDS: PREGABALIN 100 MG CAPSULE PO SCH ×3 (07:34→20:46)
[2017-03-21] MEDS: FONDAPARINUX SODIUM 2.5 MG/0.5 ML SYRINGE SQ SCH (07:35)
[2017-03-21] MEDS: ARIPIPRAZOLE 5 MG TABLET PO SCH (07:37)
[2017-03-21] MEDS: FAMOTIDINE 20 MG TABLET PO SCH (07:38)
[2017-03-21] MEDS: INSULIN LISPRO 1 UNIT/0.01 ML UNIT SQ SCH ×4 (07:53→20:45)
--- NOTE | 2017-03-21 08:29 | Nephrology Progress Note ---
Subjective Patient information: Note initiated : 03/21/17 at 8:26 am Service Date, if different from initiated Date: [] Patient: Betsy Dean 57 y/o F admitted on 03/17/17 for Cough, Chest Congestion/Legionella Pneumonia. Chief Complaint: She is feeling better, but she is depressed. Breathing is better. Objective - Vital Signs Vital signs: Vital Signs Temp Pulse Pulse Resp BP Pulse Ox 03/21/17 07:14 96 03/21/17 07:12 84 16 03/21/17 06:31 98.2 F 20 112/76 95 03/21/17 03:50 98.3 F 76 18 102/59 92 03/20/17 23:36 75 16 03/20/17 23:35 93 03/20/17 23:00 97.5 F 83 16 121/79 92 03/20/17 19:30 76 16 92 03/20/17 19:25 76 16 03/20/17 18:41 98.7 F 79 16 111/73 93 03/20/17 15:52 76 20 03/20/17 15:46 97.9 F 20 129/70 96 03/20/17 11:26 98.0 F 22 117/69 92 03/20/17 11:07 77 16 Intake and Output 03/20/17 03/21/17 03/21/17 21:59 05:59 13:59 Intake Total 240 / 240 490 / 490 600 / 600 Output Total 1800 / 1800 800 / 800 Balance 240 / 240 -1310 / -1310 -200 / -200 Intake: Oral 240 / 240 490 / 490 600 / 600 Output: Void Amount 1800 / 1800 800 / 800 Other: Meal Dinner Pudding/gram. crackers Percent of Meal Consumed 100% 100% Feeding Ability Independent # Voids 1 Weight 259 lb 8 oz Intake & Output: Intake & Output 03/20/17 03/21/17 03/21/17 21:59 05:59 13:59 Intake Total 240 / 240 490 / 490 600 / 600 Output Total 1800 / 1800 800 / 800 Balance 240 / 240 -1310 / -1310 -200 / -200 Weight 259 lb 8 oz Intake: Oral 240 / 240 490 / 490 600 / 600 Output: Void Amount 1800 / 1800 800 / 800 Other: Meal Dinner Pudding/gram. crackers Percent of Meal Consumed 100% 100% Feeding Ability Independent # Voids 1 - General Appearance General appearance: well-developed, well-nourished EENT: ATNC Neck: no JVD Respiratory: no kyphosis Cardiology: no murmurs Gastrointestinal: normoactive bowel sounds Integumentary: no rash Neurologic: no focal deficit Musculoskeletal: no deformities - Lab 03/21/17 03:55 03/21/17 03:55 Most recent lab results Calcium 8.7 mg/dl (8.6-10.4) 03/21/17 03:55 Phosphorus 3.5 mg/dL (2.7-4.5) 03/21/17 03:55 Magnesium 1.7 mg/dL (1.6-2.5) 03/21/17 03:55 Assessment and Plan (1) Kidney transplant recipient 1. History of renal transplantation secondary to polycystic kidney disease done at [facility] in 2008 stable allograft function with a baseline serum creatinine of 1.2. She was initially followed by [facility] and subsequently switched over to [facility]. She was in the process of transferring her care to me and I was scheduled to see her 03/23/2017 at the office. She has been on tacrolimus. CMV as well as BK viruses and tacrolimus levels pending. Creatinine levels had improved but now slightly worse and that is related to diuresis. 2. Legionella pneumonia. She is currently on Levaquin. It has been renally dosed. 3. Anemia. I will check iron studies. 2. Obstructive sleep apnea. 3. Type 2 diabetes. 4. Neuropathy. 5. Hyperlipidemia. 6. Gastroesophageal reflux disease. 7. Anxiety disorder. Status: Acute
[2017-03-21] MEDS: cefTRIAXone 2 GM in DEXTROSE 5% IN WATER 50 ML IV SCH (09:05)
--- NOTE | 2017-03-21 09:23 | Internal Med Progress Note ---
Medical - PN: Subj Patient information: Note initiated : 03/21/17 at 9:21 am Service Date, if different from initiated Date: [] Patient: Betsy Dean 57 y/o F admitted on 03/17/17 for Cough, Chest Congestion/Legionella Pneumonia. Chief Complaint: [] Interval history: 03/1756-14-bodd-old admitted with recurrent Legionella pneumonia. History of renal transplant on immunosuppressives. recent Legionella pneumonia last month treated on oral tetracycline. start Levaquin for 21 days. Baseline creatinine 1.2 current creatinine 1.6 03/18- patient doing well. No overnight events. No fever chills nausea vomiting or worsening SOB. continue antibiotic coverage. urine Legionella antigen pending. continue pulmonary toilet. Nephrology consult for management of immunosuppressives 03/19- patient feeling better. Klebsiella oxytoca on sputum culture. Legionella antigen pending. Continue Levaquin. White count downtrending. Feels a lot better. Ongoing physical therapy. creatinine down to 1.5 03/20-patient doing well. No overnight events. Feels fatigued and lethargic. Ongoing physical therapy. creatinine 1.4. Possible discharge in 24 hours. no significant changes since previous day. 03/21- patient doing well. No overnight fever chills. Nephrology on board. White count up to 7.2 from 2.3 post Neupogen per nephrology. renal function stable creatinine 1.6. On low dose diuretics. CT chest results pending. target 21 days antibiotics if Legionella positive else 8 days antibiotics to cover Klebsiella. patient may be a candidate for swing bed for extended antibiotic coverage - Constitutional Vitals: Vital Signs Temp Pulse Resp BP Pulse Ox 98.2 F 84 16 112/76 96 03/21/17 06:31 03/21/17 07:12 03/21/17 07:12 03/21/17 06:31 03/21/17 07:14 Period Temp Pulse Resp BP Sys/Willard Pulse Ox Last 24 Hr 97.5 F-98.7 F 75-84 16-22 102-129/59-79 92-96 Intake and Output 03/20/17 03/21/17 03/21/17 21:59 05:59 13:59 Intake Total 240 / 240 490 / 490 840 / 840 Output Total 1800 / 1800 1400 / 1400 Balance 240 / 240 -1310 / -1310 -560 / -560 Weight 259 lb 8 oz Intake & Output: Intake & Output 03/20/17 03/21/17 03/21/17 21:59 05:59 13:59 Intake Total 240 / 240 490 / 490 840 / 840 Output Total 1800 / 1800 1400 / 1400 Balance 240 / 240 -1310 / -1310 -560 / -560 Weight 259 lb 8 oz Intake: Oral 240 / 240 490 / 490 840 / 840 Output: Void Amount 1800 / 1800 1400 / 1400 Other: Meal Dinner Pudding/gram. crackers Breakfast Percent of Meal Consumed 100% 100% 100% Feeding Ability Independent # Voids 1 1 General appearance: cooperative, no acute distress Exam: obese nonlabored breathing No anxiety Lethargic Medical - PN: Obj Da - Labs CBC & Chem 7: 03/21/17 03:55 03/21/17 03:55 Labs: Abnormal Lab Results 03/21/17 03/21/17 03/20/17 03:55 03:55 03:35 WBC RBC 3.15 L Hgb 10.3 L Hct 30.1 L Plt Count 113 L MPV Lymphocytes % 11 L Anion Gap 7.0 L BUN 24 H 23 H Creatinine 1.6 H 1.4 H Glucose 165 H 133 H Uric Acid 8.5 H Calcium Total Protein 5.6 L 5.7 L Albumin Triglycerides 211 H 180 H 03/20/17 03/19/17 03/19/17 03:35 04:30 04:30 WBC 2.3 L 2.7 L RBC 3.05 L 3.11 L Hgb 10.0 L 10.1 L Hct 28.9 L 29.8 L Plt Count 107 L 104 L MPV 7.2 L Lymphocytes % Anion Gap BUN 26 H Creatinine 1.5 H Glucose 140 H Uric Acid 8.6 H Calcium 8.5 L Total Protein 5.4 L Albumin 3.0 L Triglycerides 167 H Meds: Medications Acetaminophen (Tylenol) 650 mg PO Q4-6HP PRN PRN Reason: PAIN/FEVER > 101 Last Admin: 03/19/17 16:05 Dose: 650 mg Albuterol/Ipratropium (Duoneb) 3 ml NEB Q4HRT [facility] Last Admin: 03/21/17 06:53 Dose: 3 ml Amitriptyline HCl (Elavil) 50 mg PO HS [facility] Last Admin: 03/20/17 21:00 Dose: 50 mg Atorvastatin Calcium (Lipitor) 10 mg PO HS [facility] Last Admin: 03/20/17 21:00 Dose: 10 mg Dextrose (Dextrose 50%) 0 ml IV UD PRN PRN Reason: Hypoglycemia Diagnostic Test (Pha) (Accu-Chek) 1 each FS ACHS [facility] Last Admin: 03/21/17 07:30 Dose: 1 each Docusate Sodium (Colace) 100 mg PO BID [facility] Last Admin: 03/21/17 07:33 Dose: 100 mg Ergocalciferol (Drisdol) 50,000 unit PO Slade@0900 [facility] Last Admin: 03/20/17 10:42 Dose: 50,000 unit Famotidine (Pepcid) 20 mg PO DAILY [facility] Last Admin: 03/21/17 07:38 Dose: 20 mg Fondaparinux (Arixtra) 2.5 mg SQ DAILY [facility] Last Admin: 03/21/17 07:35 Dose: 2.5 mg Furosemide (Lasix) 20 mg IV Q12 [facility] Last Admin: 03/21/17 07:33 Dose: 20 mg Guaifenesin/Codeine Phosphate (Robitussin Ac) 10 ml PO Q4HP PRN PRN Reason: Cough Heparin Sodium (Porcine) (Heparin Flush) 2 ml IV Q12 [facility] Last Admin: 03/20/17 21:01 Dose: Not Given Hydrochlorothiazide (Oretic) 12.5 mg PO DAILY [facility] Last Admin: 03/21/17 07:33 Dose: 12.5 mg Magnesium Sulfate (Magnesium Sulfate) 2 gm in 50 mls @ 50 mls/hr IV UD PRN PRN Reason: MG = or < 1.7 Levofloxacin (Levaquin) 750 mg in 150 mls @ 100 mls/hr IV Q48H [facility] Last Admin: 03/19/17 10:53 Dose: 100 mls/hr Ceftriaxone Sodium 2 gm/ (Dextrose) 50 mls @ 100 mls/hr IV DAILY [facility] Last Admin: 03/21/17 09:05 Dose: 100 mls/hr Insulin Human Lispro (Humalog) 0 unit SQ ACHS [facility] PRN Reason: Protocol Last Admin: 03/21/17 07:53 Dose: 2 unit Iron Carb/Multivit/Patient Scheduler/Folic Acid (Multivitamin W/Minerals) 1 tab PO DAILY [facility] Last Admin: 03/21/17 07:33 Dose: 1 tab Lactulose (Cephulac) 20 gm PO Q48@2100 [facility] Last Admin: 03/19/17 21:07 Dose: 20 gm Lorazepam (Ativan) 1 mg PO Q12HP PRN PRN Reason: Anxiety Magnesium Oxide (Magnesium Oxide) 800 mg PO TID [facility] Last Admin: 03/21/17 07:32 Dose: 800 mg Morphine Sulfate (Ms Contin) 30 mg PO QAM [facility] Last Admin: 03/21/17 07:33 Dose: 30 mg Morphine Sulfate (Ms Contin) 15 mg PO BID@1200,2100 [facility] Last Admin: 03/20/17 21:00 Dose: 15 mg Ondansetron HCl (Zofran) 4 mg IV Q4-6HP PRN PRN Reason: Nausea And Vomiting Pantoprazole Sodium (Protonix) 40 mg PO QAMAC [facility] Last Admin: 03/21/17 07:32 Dose: 40 mg Potassium Chloride (Klor-Con) 40 meq PO DAILYP PRN PRN Reason: K+ < 3.5 Prednisone (Prednisone) 5 mg PO QAMCC [facility] Last Admin: 03/21/17 07:32 Dose: 5 mg Pregabalin (Lyrica) 100 mg PO TID [facility] Last Admin: 03/21/17 07:34 Dose: 100 mg Senna/Docusate Sodium (Senna Plus Tablet) 1 tab PO HS [facility] Last Admin: 03/20/17 20:45 Dose: Not Given Sertraline HCl (Zoloft) 150 mg PO DAILY [facility] Last Admin: 03/21/17 07:33 Dose: 150 mg Sitagliptin Phosphate (Januvia) 50 mg PO DAILY [facility] Last Admin: 03/21/17 07:33 Dose: 50 mg Sodium Chloride (Saline Flush) 10 ml IV Q8 [facility] Last Admin: 03/21/17 05:19 Dose: 10 ml Tacrolimus (Tacrolimus) 3 mg PO BID@0700,1900 [facility] Last Admin: 03/21/17 07:31 Dose: 3 mg Tamoxifen Citrate (Tamoxifen) 20 mg PO DAILY [facility] Last Admin: 03/21/17 07:33 Dose: 20 mg Trazodone HCl (Desyrel) 50 mg PO HSP PRN PRN Reason: Insomnia Last Admin: 06/16/17 23:53 Dose: 50 mg Medical - PN: A/P - Time Spent With Patient Total time spent is greater than 50% in coordination of care (as documented) at patient's floor/unit and/or counseling patient: 15 - 24 minutes (1) Legionella pneumonia Status: Acute Assessment and plan: * Bilateral interstitial pneumonia with recent history of Legionella pneumonia- continue IV quinolone/Rocephin, however sputum cultures from [place] reveals Klebsiella. Await Legionella repeat urine antigen. low-dose diuretics * Renal transplant-on immunosuppressives.managed by nephrology Dr. Llamas * Chronic kidney disease-creatinine 1.[address] Llamas * DM type II on basal prandial insulin/linagliptin * anxiety on sertraline/lorazepam * Neuropathy and amitriptyline/pregabalin * GERD on PPI/h2 antagonist * Hyperlipidemia statin * chronic pain well-controlled on morphine * HTN on hydrochlorothiazide * full code Plan * continue antibiotic coverage to Rocephin/Levaquin. Duration to be determined based on serology results * ow-dose diuretics * await CT results * renal issues/transplant meds management per nephrology * pre-existing medical condition management as above * consider swing bed if patient requires extended duration antibiotic coverage Current Visit: Yes Medical - PN: Qual - VTE Deep Vein Thrombosis/Pulmonary Embolism Present on Admission: No
[2017-03-21] MEDS: LEVOFLOXACIN 750 MG/150 ML BAG IV SCH (10:10)
--- NOTE | 2017-03-21 11:00 | Cat Scan Report ---
CLINICAL INFORMATION: Infiltrates versus pulmonary edema COMPARISON: Plain films from 03/19/2017 and 03/17/2017 TECHNIQUE: 2.5 mm axial slices were obtained from the lung apices through the bases without intravenous contrast. Sagittal, coronal and axial reformatted images were processed and reviewed at bone, lung and soft tissue windows. 7 mm axial MIP images were also reconstructed. FINDINGS: Mediastinal windows show mild cardiomegaly with extraordinarily heavy calcific atherosclerotic plaque diffusely throughout all coronary arteries. The thoracic aorta is normal in contour and caliber with interval scattered atherosclerotic plaque. Pulmonary arteries are normal. There are no abnormally enlarged lymph nodes in the mediastinal, hilar or axillary regions. Esophagus is unremarkable. Visualized thyroid is normal. There is a left subclavian Port-A-Cath with the tip in satisfactory position overlying the SVC/right atrial junction. The left brachycephalic vein and subclavian vein are diminutive. There is moderate congestion of the superficial subcutaneous veins of the upper chest wall with edema in the axillary region. The possibility of fibrosis or thrombus occluding the left subclavian/brachiocephalic vein should be entertained. Suggest venous Doppler Pulmonary parenchymal windows show chronic bronchitis changes featuring elevated lung volumes and slight dilatation and wall thickening of the bronchi. There are scattered patchy mixed interstitial/alveolar infiltrates in the periphery of both upper, right middle and lower lobes slightly more prominent in the right upper lobe. These are nonspecific. Pulmonary arteries do not appear congested and there are no there are no effusions. Bone windows show old malunified fracture left lower ribs. No other osseous abnormality. Images through the abdomen show cholecystomy changes. The visualized liver spleen adrenal glands and pancreas are normal. IMPRESSION: 1. Small patchy mixed interstitial/alveolar infiltrates scattered throughout the area. Both upper, lower, and right middle lobes. These are nonspecific, but would be atypical for pulmonary edema related to CHF. Suspect aspiration or infection. 2. Mild underlying bronchitis 3. Extraordinarily heavy calcific atherosclerotic plaque diffusely throughout all coronary arteries. Ischemic heart disease is unknown clinically, would consider cardiology referral for stress testing. 4. Left subclavian Port-A-Cath is in satisfactory position, but the left subclavian and brachial vein are diminutive suggesting the possibility of fibrosis last thrombosis around the catheter. Consider venous Doppler. There is congestion of the subcutaneous veins the upper chest and with edema which may support this diagnosis Interpreted and Authenticated by: Gerard Pena 03/21/17
[2017-03-21] MEDS: morphine 15 MG TAB.SR.12H PO SCH ×2 (11:54→20:47)
[2017-03-21] MEDS: LORazepam 1 MG TABLET PO PRN (20:04)
[2017-03-21] MEDS: ATORVASTATIN 20 MG TABLET PO SCH (20:46)
[2017-03-21] MEDS: AMITRIPTYLINE 25 MG TABLET PO SCH (20:46)
[2017-03-21] MEDS: SENNOSIDES/DOCUSATE SODIUM 1 TAB TABLET PO SCH (20:48)
[2017-03-21] MEDS: LACTULOSE 20 GM/30 ML ORAL.SOL PO SCH (20:52)
[2017-03-22] MEDS: IPRATROPIUM/ALBUTEROL 3 ML AMPUL.NEB NEB SCH ×6 (02:32→23:05)
[2017-03-22] MEDS: 0.9 % SODIUM CHLORIDE 10 ML SYRINGE IV SCH ×3 (05:19→20:57)
[2017-03-22 06:32] LABS: Mean Corpuscular HGB Conc 34.1 g/dL (31.0-36.0); Mean Corpuscular Hemoglobin 32.3 pg (26.0-34.0); Platelet Count 113 K/mcL (140-440); RBC 3.17 M/mcL (4.00-5.20)
[2017-03-22 07:02] LABS: ALT/SGPT 11 U/l (0-40); Albumin 3.5 gm/dL (3.2-5.2); Albumin/Globulin Ratio 1.5 (1.0-2.3); Alkaline Phosphatase 105 U/L (39-117); Bilirubin,Direct < 0.2 mg/dL (0.0-0.3); Blood Urea Nitrogen 25 mg/dl (6-20); Gamma Glutamyl Transpeptidase 22 U/L (5-36); Iron 58 mcg/dl (37-145); Magnesium 1.8 mg/dL (1.6-2.5); Transferrin % Saturation 27 % (15-50); Unsaturated Iron Binding 150 mcg/dL (112-346); Uric Acid 9.5 mg/dL (2.5-8.0)
[2017-03-22 07:12] LABS: Ferritin 112.6 ng/ml (13-150)
--- NOTE | 2017-03-22 07:37 | Internal Med Progress Note ---
Medical - PN: Subj Patient information: Note initiated : 03/22/17 at 7:33 am Service Date, if different from initiated Date: [] Patient: Betsy Dean 57 y/o F admitted on 03/17/17 for Cough, Chest Congestion/Legionella Pneumonia. Chief Complaint: [] Interval history: 03/1739-26-uddw-old admitted with recurrent Legionella pneumonia. History of renal transplant on immunosuppressives. recent Legionella pneumonia last month treated on oral tetracycline. start Levaquin for 21 days. Baseline creatinine 1.2 current creatinine 1.6 03/18- patient doing well. No overnight events. No fever chills nausea vomiting or worsening SOB. continue antibiotic coverage. urine Legionella antigen pending. continue pulmonary toilet. Nephrology consult for management of immunosuppressives 03/19- patient feeling better. Klebsiella oxytoca on sputum culture. Legionella antigen pending. Continue Levaquin. White count downtrending. Feels a lot better. Ongoing physical therapy. creatinine down to 1.5 03/20-patient doing well. No overnight events. Feels fatigued and lethargic. Ongoing physical therapy. creatinine 1.4. Possible discharge in 24 hours. no significant changes since previous day. 03/21- patient doing well. No overnight fever chills. Nephrology on board. White count up to 7.2 from 2.3 post Neupogen per nephrology. renal function stable creatinine 1.6. On low dose diuretics. CT chest results pending. target 21 days antibiotics if Legionella positive else 8 days antibiotics to cover Klebsiella. patient may be a candidate for swing bed for extended antibiotic coverage 03/22- patient doing well. No overnight events. No concerns per staff. Persistent productive sputum. On 2 L oxygen. Legionella urinary antigen still pending as it's a sent out to [place]. continue empiric treatment. If negative patient can be discharged on total of 8 days antibiotics from the day of initiation. However positive patient will be transitioned to swing bed status for continued antibiotics for [address] chest patchy interstitial/alveolar infiltrates. renal function stable. White count 6.3 - Constitutional Vitals: Vital Signs Temp Pulse Resp BP Pulse Ox 98.4 F 82 16 125/75 95 03/22/17 03:26 03/22/17 07:20 03/22/17 07:03/22/17 03:26 03/22/17 07:21 Period Temp Pulse Resp BP Sys/Willard Pulse Ox Last 24 Hr 98.0 F-98.6 F 75-88 12-20 108-130/66-77 90-98 Intake and Output 03/21/17 03/22/17 03/22/17 21:59 05:59 13:59 Intake Total 1880 / 1880 150 / 150 Output Total 1400 / 1400 1300 / 1300 Balance 480 / 480 -1150 / -1150 Weight 256 lb 8 oz Intake & Output: Intake & Output 03/21/17 03/22/17 03/22/17 21:59 05:59 13:59 Intake Total 1880 / 1880 150 / 150 Output Total 1400 / 1400 1300 / 1300 Balance 480 / 480 -1150 / -1150 Weight 256 lb 8 oz Intake: Oral 1880 / 1880 150 / 150 Output: Void Amount 1400 / 1400 1300 / 1300 Other: Meal Dinner Percent of Meal Consumed 100% General appearance: cooperative, morbidly obese, no acute distress Exam: on 2 L oxygen nonlabored breathing No anxiety Nondistended abdomen Minimal lymphedema Medical - PN: Obj Da - Labs CBC & Chem 7: 03/22/17 05:00 03/22/17 05:00 Labs: Abnormal Lab Results 03/22/17 03/22/17 03/21/17 05:00 05:00 03:55 WBC RBC 3.17 L Hgb 10.3 L Hct 30.1 L Plt Count 113 L MPV Lymphocytes % Carbon Dioxide 31 H Anion Gap BUN 25 H 24 H Creatinine 1.5 H 1.6 H Glucose 125 H 165 H Uric Acid 9.5 H 8.5 H TIBC 208 L Total Protein 5.6 L Triglycerides 178 H 211 H 03/21/17 03/20/17 03/20/17 03:55 03:35 03:35 WBC 2.3 L RBC 3.15 L 3.05 L Hgb 10.3 L 10.0 L Hct 30.1 L 28.9 L Plt Count 113 L 107 L MPV 7.2 L Lymphocytes % 11 L Carbon Dioxide Anion Gap 7.0 L BUN 23 H Creatinine 1.4 H Glucose 133 H Uric Acid TIBC Total Protein 5.7 L Triglycerides 180 H 03/19/17 04:30 WBC 2.7 L RBC 3.11 L Hgb 10.1 L Hct 29.8 L Plt Count 104 L MPV Lymphocytes % Carbon Dioxide Anion Gap BUN Creatinine Glucose Uric Acid TIBC Total Protein Triglycerides Meds: Medications Acetaminophen (Tylenol) 650 mg PO Q4-6HP PRN PRN Reason: PAIN/FEVER > 101 Last Admin: 03/19/17 16:05 Dose: 650 mg Albuterol/Ipratropium (Duoneb) 3 ml NEB Q4HRT [facility] Last Admin: 03/22/17 06:50 Dose: 3 ml Amitriptyline HCl (Elavil) 50 mg PO HS [facility] Last Admin: 03/21/17 20:46 Dose: 50 mg Atorvastatin Calcium (Lipitor) 10 mg PO HS [facility] Last Admin: 03/21/17 20:46 Dose: 10 mg Dextrose (Dextrose 50%) 0 ml IV UD PRN PRN Reason: Hypoglycemia Diagnostic Test (Pha) (Accu-Chek) 1 each FS ACHS [facility] Last Admin: 03/21/17 20:45 Dose: 1 each Docusate Sodium (Colace) 100 mg PO BID [facility] Last Admin: 03/21/17 20:47 Dose: Not Given Ergocalciferol (Drisdol) 50,000 unit PO [place]@0900 [facility] Last Admin: 03/20/17 10:42 Dose: 50,000 unit Famotidine (Pepcid) 20 mg PO DAILY [facility] Last Admin: 03/21/17 07:38 Dose: 20 mg Fondaparinux (Arixtra) 2.5 mg SQ DAILY [facility] Last Admin: 03/21/17 07:35 Dose: 2.5 mg Furosemide (Lasix) 20 mg IV Q12 [facility] Last Admin: 03/21/17 20:46 Dose: 20 mg Guaifenesin/Codeine Phosphate (Robitussin Ac) 10 ml PO Q4HP PRN PRN Reason: Cough Heparin Sodium (Porcine) (Heparin Flush) 2 ml IV Q12 [facility] Last Admin: 03/21/17 20:46 Dose: 2 ml Hydrochlorothiazide (Oretic) 12.5 mg PO DAILY [facility] Last Admin: 03/21/17 07:33 Dose: 12.5 mg Magnesium Sulfate (Magnesium Sulfate) 2 gm in 50 mls @ 50 mls/hr IV UD PRN PRN Reason: MG = or < 1.7 Levofloxacin (Levaquin) 750 mg in 150 mls @ 100 mls/hr IV Q48H [facility] Last Infusion: 03/21/17 11:40 Dose: Infused Ceftriaxone Sodium 2 gm/ (Dextrose) 50 mls @ 100 mls/hr IV DAILY [facility] Last Infusion: 03/21/17 09:35 Dose: Infused Insulin Human Lispro (Humalog) 0 unit SQ ACHS [facility] PRN Reason: Protocol Last Admin: 03/21/17 20:45 Dose: 1 unit Iron Carb/Multivit/[place]/Folic Acid (Multivitamin W/Minerals) 1 tab PO DAILY [facility] Last Admin: 03/21/17 07:33 Dose: 1 tab Lactulose (Cephulac) 20 gm PO Q48@2100 [facility] Last Admin: 03/21/17 20:52 Dose: 20 gm Lorazepam (Ativan) 1 mg PO Q12HP PRN PRN Reason: Anxiety Last Admin: 03/21/17 20:04 Dose: 1 mg Magnesium Oxide (Magnesium Oxide) 800 mg PO TID [facility] Last Admin: 03/21/17 20:47 Dose: 800 mg Morphine Sulfate (Ms Contin) 30 mg PO QAM [facility] Last Admin: 03/21/17 07:33 Dose: 30 mg Morphine Sulfate (Ms Contin) 15 mg PO BID@1200,2100 [facility] Last Admin: 03/21/17 20:47 Dose: 15 mg Ondansetron HCl (Zofran) 4 mg IV Q4-6HP PRN PRN Reason: Nausea And Vomiting Pantoprazole Sodium (Protonix) 40 mg PO QAMAC [facility] Last Admin: 03/21/17 07:32 Dose: 40 mg Potassium Chloride (Klor-Con) 40 meq PO DAILYP PRN PRN Reason: K+ < 3.5 Prednisone (Prednisone) 5 mg PO QAMCC [facility] Last Admin: 03/21/17 07:32 Dose: 5 mg Pregabalin (Lyrica) 100 mg PO TID [facility] Last Admin: 03/21/17 20:46 Dose: 100 mg Senna/Docusate Sodium (Senna Plus Tablet) 1 tab PO HS [facility] Last Admin: 03/21/17 20:48 Dose: Not Given Sertraline HCl (Zoloft) 150 mg PO DAILY [facility] Last Admin: 03/21/17 07:33 Dose: 150 mg Sitagliptin Phosphate (Januvia) 50 mg PO DAILY [facility] Last Admin: 03/21/17 07:33 Dose: 50 mg Sodium Chloride (Saline Flush) 10 ml IV Q8 [facility] Last Admin: 03/22/17 05:19 Dose: 10 ml Tacrolimus (Tacrolimus) 3 mg PO BID@0700,1900 [facility] Last Admin: 03/21/17 18:45 Dose: 3 mg Tamoxifen Citrate (Tamoxifen) 20 mg PO DAILY [facility] Last Admin: 03/21/17 07:33 Dose: 20 mg Trazodone HCl (Desyrel) 50 mg PO HSP PRN PRN Reason: Insomnia Last Admin: 03/18/17 23:53 Dose: 50 mg Medical - PN: A/P - Time Spent With Patient Total time spent is greater than 50% in coordination of care (as documented) at patient's floor/unit and/or counseling patient: 15 - 24 minutes (1) Legionella pneumonia Status: Chronic Assessment and plan: * Bilateral interstitial pneumonia. CT confirms patchy infiltrates. Recent history of Legionella pneumonia and underlying immunocompromise status on tacrolimus for renal transplant-continue IV quinolone/Rocephin, however sputum cultures from [place] reveals Klebsiella. Await Legionella repeat urine antigen. further treatment duration will depend onserology/cultures * hypoxic respiratory insufficiency secondary to above. On 2 L oxygen * Renal transplant-on immunosuppressives.managed by nephrology Dr. Llamas * Chronic kidney disease-creatinine 1.[address] Llamas * DM type II on basal prandial insulin/linagliptin * Anxiety on sertraline/lorazepam * Neuropathy and amitriptyline/pregabalin * GERD on PPI/h2 antagonist * Hyperlipidemia statin * chronic pain well-controlled on morphine * HTN on hydrochlorothiazide * full code Plan * continue antibiotic coverage to Rocephin/Levaquin. Duration to be determined based on serology results * continue low-dose diuretics * await CT results * renal issues/transplant meds management per nephrology * pre-existing medical condition management as above * consider swing bed if patient requires extended duration antibiotic coverage Current Visit: Yes Medical - PN: Qual - VTE Deep Vein Thrombosis/Pulmonary Embolism Present on Admission: No
[2017-03-22 07:38] LABS: Eosinophils % (Manual) 2 % (0-7); Lymphocytes % 18 % (15-49); Monocytes % (Manual) 2 % (1-12); Myelocytes % 1 % (0-0); Platelet Estimate DECREASED (NORMAL); RBC Morphology NORMAL (NORMAL); Segmented Neutrophils % 77 % (38-78)
[2017-03-22] MEDS: TACROLIMUS 1 MG CAPSULE PO SCH ×2 (07:40→18:53)
[2017-03-22] MEDS: PANTOPRAZOLE 40 MG TABLET PO SCH (07:54)
[2017-03-22] MEDS: INSULIN LISPRO 1 UNIT/0.01 ML UNIT SQ SCH ×4 (08:12→20:54)
[2017-03-22] MEDS: predniSONE 5 MG TABLET PO SCH (08:17)
[2017-03-22] MEDS: ARIPIPRAZOLE 5 MG TABLET PO SCH (09:37)
[2017-03-22] MEDS: DOCUSATE SODIUM 100 MG CAPSULE PO SCH ×2 (09:38→20:55)
[2017-03-22] MEDS: sitaGLIPtin 50 MG TABLET PO SCH (09:38)
[2017-03-22] MEDS: PREGABALIN 100 MG CAPSULE PO SCH ×3 (09:39→20:55)
[2017-03-22] MEDS: MAGNESIUM OXIDE 400 MG TABLET PO SCH ×3 (09:39→20:56)
[2017-03-22] MEDS: morphine 30 MG TAB.SR.12H PO SCH (09:41)
[2017-03-22] MEDS: MULTIVIT,THER IRON,CA,FA & MIN 1 TABLET PO SCH (09:42)
[2017-03-22] MEDS: FAMOTIDINE 20 MG TABLET PO SCH (09:43)
[2017-03-22] MEDS: HYDROCHLOROTHIAZIDE 12.5 MG CAPSULE PO SCH (09:43)
[2017-03-22] MEDS: TAMOXIFEN 10 MG TABLET PO SCH (09:44)
[2017-03-22] MEDS: SERTRALINE 50 MG TABLET PO SCH (09:45)
[2017-03-22] MEDS: FUROSEMIDE 20 MG/2 ML VIAL IV SCH ×2 (09:57→20:55)
[2017-03-22] MEDS: cefTRIAXone 2 GM in DEXTROSE 5% IN WATER 50 ML IV SCH (10:10)
[2017-03-22] MEDS: FONDAPARINUX SODIUM 2.5 MG/0.5 ML SYRINGE SQ SCH (10:53)
[2017-03-22] MEDS: LORazepam 1 MG TABLET PO PRN (11:46)
[2017-03-22] MEDS: morphine 15 MG TAB.SR.12H PO SCH ×2 (12:04→20:57)
[2017-03-22 12:16] LABS: Legionella pneumophilia Ag, Ur NOT DETECTED
--- NOTE | 2017-03-22 17:59 | Nephrology Progress Note ---
Subjective Patient information: Note initiated : 03/22/17 at 5:35 pm Service Date, if different from initiated Date: [] Patient: Betsy Dean 57 y/o F admitted on 03/17/17 for Cough, Chest Congestion/Legionella Pneumonia. Chief Complaint: Still does not feel up to it. Breathing is better but the back has been hurting. Objective - Vital Signs Vital signs: Vital Signs Temp Pulse Pulse Pulse Resp BP Pulse Ox 03/22/17 15:39 98.2 F 18 99/64 93 03/22/17 15:08 84 16 03/22/17 11:41 98.4 F 20 109/72 92 03/22/17 11:13 97 03/22/17 11:12 88 16 97 03/22/17 11:11 88 16 03/22/17 08:00 97.0 F 85 16 106/69 94 03/22/17 07:21 95 03/22/17 07:20 82 16 95 03/22/17 07:18 84 16 03/22/17 03:26 98.4 F 75 18 125/75 90 03/21/17 23:11 98.2 F 78 18 118/75 93 03/21/17 23:03 80 16 03/21/17 19:18 98.5 F 84 16 115/77 92 03/21/17 19:14 76 16 03/21/17 19:08 96 Intake and Output 03/22/17 03/22/17 03/22/17 05:59 13:59 21:59 Intake Total 150 / 150 840 / 840 1300 / 1300 Output Total 1300 / 1300 500 / 500 Balance -1150 / -1150 840 / 840 800 / 800 Intake: Oral 150 / 150 840 / 840 1250 / 1250 Tube Feeding 50 / 50 Output: Void Amount 1300 / 1300 500 / 500 # of times incontinent of 0 / 0 urine Other: Meal Lunch Lunch Percent of Meal Consumed 100% 100% Feeding Ability Independent # Voids 2 Intake & Output: Intake & Output 03/22/17 03/22/17 03/22/17 05:59 13:59 21:59 Intake Total 150 / 150 840 / 840 1300 / 1300 Output Total 1300 / 1300 500 / 500 Balance -1150 / -1150 840 / 840 800 / 800 Intake: Oral 150 / 150 840 / 840 1250 / 1250 Tube Feeding 50 / 50 Output: Void Amount 1300 / 1300 500 / 500 # of times incontinent of 0 / 0 urine Other: Meal Lunch Lunch Percent of Meal Consumed 100% 100% Feeding Ability Independent # Voids 2 - General Appearance General appearance: well-developed EENT: ATNC Neck: no JVD Respiratory: no kyphosis Cardiology: no murmurs Gastrointestinal: no tenderness Musculoskeletal: no deformities - Lab 03/22/17 05:00 03/22/17 05:00 Most recent lab results Calcium 9.1 mg/dl (8.6-10.4) 03/22/17 05:00 Phosphorus 4.2 mg/dL (2.7-4.5) 03/22/17 05:00 Magnesium 1.8 mg/dL (1.6-2.5) 03/22/17 05:00 Assessment and Plan (1) Kidney transplant recipient 1. History of renal transplantation secondary to polycystic kidney disease done at [facility] in 2008 stable allograft function with a baseline serum creatinine of 1.2. She was initially followed by [facility] and subsequently switched over to [facility]. She was in the process of transferring her care to de and I was scheduled to see her 03/23/2017 at the office. She has been on tacrolimus. CMV as well as BK viruses and tacrolimus levels pending. Creatinine levels had improved but now slightly worse and that is related to diuresis. She is diuresing well. 2. Legionella pneumonia. She is currently on antibiotics. Would benefit from working up for PCP. 3. Anemia. iron studies ok. 2. Obstructive sleep apnea. 3. Type 2 diabetes. 4. Neuropathy. 5. Hyperlipidemia. 6. Gastroesophageal reflux disease. 7. Anxiety disorder. Status: Chronic
[2017-03-22] MEDS: AMITRIPTYLINE 25 MG TABLET PO SCH (20:56)
[2017-03-22] MEDS: ATORVASTATIN 20 MG TABLET PO SCH (20:56)
[2017-03-22] MEDS: LIDOCAINE PATCH TOPICAL SCH (20:56)
[2017-03-22] MEDS: SENNOSIDES/DOCUSATE SODIUM 1 TAB TABLET PO SCH (20:57)
[2017-03-23] MEDS: IPRATROPIUM/ALBUTEROL 3 ML AMPUL.NEB NEB SCH ×6 (03:10→23:09)
[2017-03-23] MEDS: 0.9 % SODIUM CHLORIDE 10 ML SYRINGE IV SCH ×3 (04:59→23:23)
[2017-03-23] MEDS: PANTOPRAZOLE 40 MG TABLET PO SCH (07:25)
[2017-03-23] MEDS: TACROLIMUS 1 MG CAPSULE PO SCH ×2 (07:25→20:57)
[2017-03-23] MEDS: INSULIN LISPRO 1 UNIT/0.01 ML UNIT SQ SCH ×4 (07:27→21:14)
[2017-03-23] MEDS: PREGABALIN 100 MG CAPSULE PO SCH ×3 (09:13→23:22)
[2017-03-23] MEDS: FAMOTIDINE 20 MG TABLET PO SCH (09:13)
[2017-03-23] MEDS: MULTIVIT,THER IRON,CA,FA & MIN 1 TABLET PO SCH (09:13)
[2017-03-23] MEDS: SERTRALINE 50 MG TABLET PO SCH (09:14)
[2017-03-23] MEDS: MAGNESIUM OXIDE 400 MG TABLET PO SCH ×3 (09:14→20:56)
[2017-03-23] MEDS: HYDROCHLOROTHIAZIDE 12.5 MG CAPSULE PO SCH (09:14)
[2017-03-23] MEDS: FONDAPARINUX SODIUM 2.5 MG/0.5 ML SYRINGE SQ SCH (09:14)
[2017-03-23] MEDS: predniSONE 5 MG TABLET PO SCH (09:14)
[2017-03-23] MEDS: sitaGLIPtin 50 MG TABLET PO SCH (09:14)
[2017-03-23] MEDS: DOCUSATE SODIUM 100 MG CAPSULE PO SCH ×2 (09:14→20:57)
[2017-03-23] MEDS: morphine 30 MG TAB.SR.12H PO SCH (09:14)
[2017-03-23] MEDS: TAMOXIFEN 10 MG TABLET PO SCH (09:15)
[2017-03-23] MEDS: ARIPIPRAZOLE 5 MG TABLET PO SCH (09:15)
[2017-03-23] MEDS: FUROSEMIDE 20 MG/2 ML VIAL IV SCH (09:16)
[2017-03-23] MEDS: LIDOCAINE PATCH TOPICAL SCH ×2 (09:16→21:01)
[2017-03-23] MEDS: cefTRIAXone 2 GM in DEXTROSE 5% IN WATER 50 ML IV SCH (09:16)
[2017-03-23] MEDS: LEVOFLOXACIN 750 MG/150 ML BAG IV SCH (09:56)
[2017-03-23 11:33] LABS: Blood Urea Nitrogen 30 mg/dl (6-20)
[2017-03-23] MEDS: morphine 15 MG TAB.SR.12H PO SCH ×2 (11:34→20:56)
[2017-03-23] MEDS ORDERED: 0.9 % SODIUM CHLORIDE 500 ML IV ONE (12:53)
--- NOTE | 2017-03-23 13:03 | Internal Med Progress Note ---
Medical - PN: Subj Patient information: Note initiated : 03/23/17 at 12:59 pm Service Date, if different from initiated Date: [] Patient: Betsy Dean 57 y/o F admitted on 03/17/17 for Cough, Chest Congestion/Legionella Pneumonia. Chief Complaint: [] Interval history: [id number] admitted with recurrent Legionella pneumonia. History of renal transplant on immunosuppressives. recent Legionella pneumonia last month treated on oral tetracycline. start Levaquin for 21 days. Baseline creatinine 1.2 current creatinine 1.6 03/18- patient doing well. No overnight events. No fever chills nausea vomiting or worsening SOB. continue antibiotic coverage. urine Legionella antigen pending. continue pulmonary toilet. Nephrology consult for management of immunosuppressives 03/19- patient feeling better. Klebsiella oxytoca on sputum culture. Legionella antigen pending. Continue Levaquin. White count downtrending. Feels a lot better. Ongoing physical therapy. creatinine down to 1.5 03/20-patient doing well. No overnight events. Feels fatigued and lethargic. Ongoing physical therapy. creatinine 1.4. Possible discharge in 24 hours. no significant changes since previous day. 03/21- patient doing well. No overnight fever chills. Nephrology on board. White count up to 7.2 from 2.3 post Neupogen per nephrology. renal function stable creatinine 1.6. On low dose diuretics. CT chest results pending. target 21 days antibiotics if Legionella positive else 8 days antibiotics to cover Klebsiella. patient may be a candidate for swing bed for extended antibiotic coverage 03/22- patient doing well. No overnight events. No concerns per staff. Persistent productive sputum. On 2 L oxygen. Legionella urinary antigen still pending as it's a sent out to [place]. continue empiric treatment. If negative patient can be discharged on total of 8 days antibiotics from the day of initiation. However positive patient will be transitioned to swing bed status for continued antibiotics for [address] chest patchy interstitial/alveolar infiltrates. renal function stable. White count 6.3 03/23: Pt seen examined, no acute overnight events, pt on 2L oxygen her home needs. Her Legionella antigen is neg, Nephrology consult appreciated, she has klebsiella oxytoca on the sputum cx which is ta sensitive, she is on appripriate abs, given CT findings will check PCP pneumona in sputum. LDH is neg which is reassuring. Patient creat also is worse to day at 1.8, IV fluids today, hold lasix, reassess in AM, consider renal USG in AM if renal function does not improve. Pertinent ROS: Denies headache, dizziness Denies chest pain, palpitations Denies cough or shortness of breath Denies abdominal pain, nausea or vomiting. - Constitutional Vitals: Vital Signs Temp Pulse Resp BP Pulse Ox 96.9 F L 80 18 111/72 95 03/23/17 11:46 03/23/17 07:07 03/23/17 11:46 03/23/17 11:46 03/23/17 11:46 Period Temp Pulse Resp BP Sys/Willard Pulse Ox Last 24 Hr 96.8 F-98.2 F 75-86 16-20 99-129/64-85 92-95 Intake and Output 03/22/17 03/23/17 03/23/17 21:59 05:59 13:59 Intake Total 1540 / 1540 500 / 500 800 / 800 Output Total 1300 / 1300 800 / 800 1100 / 1100 Balance 240 / 240 -300 / -300 -300 / -300 Weight 253 lb 8 oz Intake & Output: Intake & Output 03/22/17 03/23/17 03/23/17 21:59 05:59 13:59 Intake Total 1540 / 1540 500 / 500 800 / 800 Output Total 1300 / 1300 800 / 800 1100 / 1100 Balance 240 / 240 -300 / -300 -300 / -300 Weight 253 lb 8 oz Intake: Oral 1490 / 1490 500 / 500 800 / 800 Tube Feeding 50 / 50 Output: Void Amount 1300 / 1300 800 / 800 1100 / 1100 # of times incontinent of 0 / 0 urine Other: Meal Dinner Breakfast Percent of Meal Consumed 100% 100% Feeding Ability Independent Independent # Voids 2 # Bowel Movements 1 Exam: Constitutional; Afebrile, cooperative, alert, not in distress, morbidly obese Eyes- No icterus, , No periorbital swelling Ears- Ext ear normal, hearing normal to conversation. Neck- Midline trachea, supple Respiratory system: Air Entry equal on both sides, No crackles or wheezing, no rhonchi. CVS- Rate rhythm regular, S1,S2 heard, no gallop, no rub. 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 Medical - PN: Obj Da - Labs CBC & Chem 7: 03/22/17 05:00 03/23/17 10:35 Labs: Abnormal Lab Results 03/23/17 03/22/17 03/22/17 10:35 05:00 05:00 RBC 3.17 L Hgb 10.3 L Hct 30.1 L Plt Count 113 L Lymphocytes % Myelocytes % 1 H Carbon Dioxide 33 H 31 H BUN 30 H 25 H Creatinine 1.8 H 1.5 H Glucose 196 H 125 H Uric Acid 9.5 H TIBC 208 L Total Protein Triglycerides 178 H 03/21/17 03/21/17 03:55 03:55 RBC 3.15 L Hgb 10.3 L Hct 30.1 L Plt Count 113 L Lymphocytes % 11 L Myelocytes % Carbon Dioxide BUN 24 H Creatinine 1.6 H Glucose 165 H Uric Acid 8.5 H TIBC Total Protein 5.6 L Triglycerides 211 H Meds: Medications Acetaminophen (Tylenol) 650 mg PO Q4-6HP PRN PRN Reason: PAIN/FEVER > 101 Last Admin: 03/19/17 16:05 Dose: 650 mg Albuterol/Ipratropium (Duoneb) 3 ml NEB Q4HRT [facility] Last Admin: 03/23/17 11:32 Dose: Not Given Amitriptyline HCl (Elavil) 50 mg PO [facility] Last Admin: 03/22/17 20:56 Dose: 50 mg Atorvastatin Calcium (Lipitor) 10 mg PO [facility] Last Admin: 03/22/17 20:56 Dose: 10 mg Dextrose (Dextrose 50%) 0 ml IV UD PRN PRN Reason: Hypoglycemia Diagnostic Test (Pha) (Accu-Chek) 1 each FS ACHS [facility] Last Admin: 03/23/17 11:33 Dose: 1 each Docusate Sodium (Colace) 100 mg PO BID [facility] Last Admin: 03/23/17 09:14 Dose: 100 mg Ergocalciferol (Drisdol) 50,000 unit PO Slade@0900 [facility] Last Admin: 03/20/17 10:42 Dose: 50,000 unit Famotidine (Pepcid) 20 mg PO DAILY [facility] Last Admin: 03/23/17 09:13 Dose: 20 mg Fondaparinux (Arixtra) 2.5 mg SQ DAILY [facility] Last Admin: 03/23/17 09:14 Dose: 2.5 mg Guaifenesin/Codeine Phosphate (Robitussin Ac) 10 ml PO Q4HP PRN PRN Reason: Cough Heparin Sodium (Porcine) (Heparin Flush) 2 ml IV Q12 [facility] Last Admin: 03/23/17 09:15 Dose: 2 ml Hydrochlorothiazide (Oretic) 12.5 mg PO DAILY [facility] Last Admin: 03/23/17 09:14 Dose: 12.5 mg Magnesium Sulfate (Magnesium Sulfate) 2 gm in 50 mls @ 50 mls/hr IV UD PRN PRN Reason: MG = or < 1.7 Levofloxacin (Levaquin) 750 mg in 150 mls @ 100 mls/hr IV Q48H [facility] Last Admin: 03/23/17 09:56 Dose: 100 mls/hr Ceftriaxone Sodium 2 gm/ (Dextrose) 50 mls @ 100 mls/hr IV DAILY [facility] Last Admin: 03/23/17 09:16 Dose: 100 mls/hr Sodium Chloride (Sodium Chloride 0.9%) 1,000 mls @ 100 mls/hr IV .Q10H [facility] Stop: 03/24/17 08:59 Insulin Human Lispro (Humalog) 0 unit SQ ACHS [facility] PRN Reason: Protocol Last Admin: 03/23/17 11:33 Dose: 3 unit Iron Carb/Multivit/[place]ham/Folic Acid (Multivitamin W/Minerals) 1 tab PO DAILY [facility] Last Admin: 03/23/17 09:13 Dose: 1 tab Lactulose (Cephulac) 20 gm PO Q48@2100 [facility] Last Admin: 03/21/17 20:52 Dose: 20 gm Lidocaine (Lidoderm) 1 patch TOPICAL [facility] Last Admin: 03/22/17 20:56 Dose: 1 patch Lidocaine (Lidoderm) 0 patch TOPICAL DAILY [facility] Last Admin: 03/23/17 09:16 Dose: Not Given Lorazepam (Ativan) 1 mg PO Q12HP PRN PRN Reason: Anxiety Last Admin: 03/22/17 11:46 Dose: 1 mg Magnesium Oxide (Magnesium Oxide) 800 mg PO TID [facility] Last Admin: 03/23/17 09:14 Dose: 800 mg Morphine Sulfate (Ms Contin) 30 mg PO QAM [facility] Last Admin: 03/23/17 09:14 Dose: 30 mg Morphine Sulfate (Ms Contin) 15 mg PO BID@1200,2100 [facility] Last Admin: 03/23/17 11:34 Dose: 15 mg Ondansetron HCl (Zofran) 4 mg IV Q4-6HP PRN PRN Reason: Nausea And Vomiting Pantoprazole [facility]ix) [facility] Last Admin: 03/23/17 07:25 Dose: 40 mg Potassium Chloride (Klor-Con) 40 meq PO DAILYP PRN PRN Reason: K+ < 3.5 [facility] Admin: 03/23/17 09:14 Dose: 5 mg Pregabalin (Lyrica) 100 mg PO TID [facility] Last Admin: 03/23/17 09:13 Dose: 100 mg Senna/Docusate Sodium (Senna Plus Tablet) 1 tab PO HS [facility] Last Admin: 03/22/17 20:57 Dose: Not Given Sertraline HCl (Zoloft) 150 mg PO DAILY [facility] Last Admin: 03/23/17 09:14 Dose: 150 mg Sitagliptin Phosphate (Januvia) 50 mg PO DAILY [facility] Last Admin: 03/23/17 09:14 Dose: 50 mg Sodium Chloride (Saline Flush) 10 ml IV Q8 [facility] Last Admin: 03/23/17 04:59 Dose: 10 ml Tacrolimus (Tacrolimus) 3 mg PO BID@0700,1900 [facility] Last Admin: 03/23/17 07:25 Dose: 3 mg Tamoxifen Citrate (Tamoxifen) 20 mg PO DAILY [facility] Last Admin: 03/23/17 09:15 Dose: 20 mg Trazodone HCl (Desyrel) 50 mg PO HSP PRN PRN Reason: Insomnia Last Admin: 03/18/17 23:53 Dose: 50 mg Medical - PN: A/P - Time Spent With Patient Total time spent is greater than 50% in coordination of care (as documented) at patient's floor/unit and/or counseling patient: - Narrative A/P Narrative: Bilateral interstitial pneumonia. CT confirms patchy infiltrates. Recent history of Legionella pneumonia and underlying immunocompromise status on tacrolimus for renal transplant-continue IV quinolone/Rocephin, however sputum cultures from [place] reveals Klebsiella. repeat legionella test is negative. Given immunocompromised st atus, check for pcp pneumonia. normal LDH is reassuring. 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 levels pending, cmv, polyoma virus pending. on prednisone and tacroliums Acute on chr renal failure: IV fluids now, nephrology following, hold lasix, consider renal usg in AM DM on insulin, Glucose higher than goal, increase dose of insulin to medium scale. Neuropathy: Continue amitriptyline and pregabalin. HLD on statin Chr pain on morphine continue same. HTN bp ok, continue hctz. Full code DVT hep sq Medical - PN: Qual - VTE Deep Vein Thrombosis/Pulmonary Embolism Present on Admission: No
[2017-03-23] MEDS ORDERED: 0.9 % SODIUM CHLORIDE 250 ML IV ONE (13:20)
[2017-03-23] MEDS: 0.9 % SODIUM CHLORIDE 1,000 ML IV SCH ×2 (13:38→23:23)
[2017-03-23] MEDS: LORazepam 1 MG TABLET PO PRN (18:59)
[2017-03-23] MEDS: ACETAMINOPHEN 325 MG TABLET PO PRN (18:59)
[2017-03-23] MEDS: LACTULOSE 20 GM/30 ML ORAL.SOL PO SCH (20:56)
[2017-03-23] MEDS: ATORVASTATIN 20 MG TABLET PO SCH (20:56)
[2017-03-23] MEDS: AMITRIPTYLINE 25 MG TABLET PO SCH (20:56)
[2017-03-23] MEDS: SENNOSIDES/DOCUSATE SODIUM 1 TAB TABLET PO SCH (20:57)
[2017-03-24] MEDS: IPRATROPIUM/ALBUTEROL 3 ML AMPUL.NEB NEB SCH ×3 (03:06→11:41)
[2017-03-24] MEDS: 0.9 % SODIUM CHLORIDE 10 ML SYRINGE IV SCH ×2 (06:06→13:15)
[2017-03-24 06:30] LABS: Basophils # (Auto) 0 K/mcL (0.0-0.3); Basophils % (Auto) 0.2 % (0.0-2.0); Eosinophils # (Auto) 0.1 K/mcL (0.0-0.7); Eosinophils % (Auto) 1.6 % (0.0-7.0); Granulocytes % (Auto) 68.6 % (38.0-78.0); Lymphocytes # (Auto) 1.1 K/mcL (1.5-4.8); Lymphocytes % (Auto) 24.9 % (15.5-49.0); Mean Cell Volume 94.4 fL (80.0-100.0); Mean Corpuscular HGB Conc 34.5 g/dL (31.0-36.0); Mean Corpuscular Hemoglobin 32.6 pg (26.0-34.0); Monocytes # (Auto) 0.2 K/mcL (0.1-0.9); Monocytes % (Auto) 4.7 % (1.0-12.0); Platelet Count 114 K/mcL (140-440); RBC 3.19 M/mcL (4.00-5.20); Red Cell Distribution Width 13.8 % (11.5-14.5)
[2017-03-24 06:47] LABS: ALT/SGPT 13 U/l (0-40); Albumin 3.5 gm/dL (3.2-5.2); Albumin/Globulin Ratio 1.5 (1.0-2.3); Alkaline Phosphatase 111 U/L (39-117); Bilirubin,Direct < 0.2 mg/dL (0.0-0.3); Blood Urea Nitrogen 29 mg/dl (6-20); Gamma Glutamyl Transpeptidase 25 U/L (5-36); Magnesium 2.2 mg/dL (1.6-2.5); Uric Acid 9.9 mg/dL (2.5-8.0)
[2017-03-24] MEDS: INSULIN LISPRO 1 UNIT/0.01 ML UNIT SQ SCH ×2 (06:50→11:36)
[2017-03-24] MEDS: TACROLIMUS 1 MG CAPSULE PO SCH (06:52)
[2017-03-24] MEDS: PANTOPRAZOLE 40 MG TABLET PO SCH (06:52)
[2017-03-24] MEDS: cefTRIAXone 2 GM in DEXTROSE 5% IN WATER 50 ML IV SCH (08:45)
[2017-03-24] MEDS: FONDAPARINUX SODIUM 2.5 MG/0.5 ML SYRINGE SQ SCH (08:45)
[2017-03-24] MEDS: ARIPIPRAZOLE 5 MG TABLET PO SCH (08:45)
[2017-03-24] MEDS: predniSONE 5 MG TABLET PO SCH (08:46)
[2017-03-24] MEDS: TAMOXIFEN 10 MG TABLET PO SCH (08:46)
[2017-03-24] MEDS: FAMOTIDINE 20 MG TABLET PO SCH (08:46)
[2017-03-24] MEDS: PREGABALIN 100 MG CAPSULE PO SCH (08:46)
[2017-03-24] MEDS: SERTRALINE 50 MG TABLET PO SCH (08:46)
[2017-03-24] MEDS: MAGNESIUM OXIDE 400 MG TABLET PO SCH (08:46)
[2017-03-24] MEDS: DOCUSATE SODIUM 100 MG CAPSULE PO SCH (08:47)
[2017-03-24] MEDS: MULTIVIT,THER IRON,CA,FA & MIN 1 TABLET PO SCH (08:47)
[2017-03-24] MEDS: HYDROCHLOROTHIAZIDE 12.5 MG CAPSULE PO SCH (08:47)
[2017-03-24] MEDS: sitaGLIPtin 50 MG TABLET PO SCH (08:47)
[2017-03-24] MEDS: morphine 30 MG TAB.SR.12H PO SCH (08:47)
[2017-03-24] MEDS: LIDOCAINE PATCH TOPICAL SCH (08:48)
[2017-03-24 09:36] LABS: BKV Source PLASMA
[2017-03-24] MEDS: morphine 15 MG TAB.SR.12H PO SCH (11:37)
--- NOTE | 2017-03-24 12:58 | Discharge Summary ---
Medical - DS: Prov Patient information: Note initiated : 03/24/17 at 12:53 pm Service Date, if different from initiated Date: [] Patient: Betsy Dean 57 y/o F admitted on 03/17/17 for Cough, Chest Congestion/Legionella Pneumonia. Chief Complaint: [] Date of admission: 03/17/17 22:20 Discharge date: 03/24/17 Primary care physician: Belia Tamez Admitting clinician: Hayden Armas Discharging clinician: Carmelo Trevino Medical - DS: Meds - Discharge Medications Prescriptions: Amoxicillin/Potassium Clav [Augmentin] 875 mg PO Q12H #6 tablet HYDROcodone/APAP 10/325MG [Canaan 10/325Mg] 1 tab PO Q6HP PRN #30 PRN Reason: pain Lidocaine [Lidoderm] 1 patch TOPICAL HS #7 patch LORazepam [Ativan] 1 mg PO Q12HP PRN #10 PRN Reason: Anxiety morphine [Ms Contin] 15 mg PO BID #20 morphine SULFATE [Ms Contin] 30 mg PO QAM #10 Pregabalin [Lyrica] 100 mg PO TID #30 Active and Home Medications: Home Medications Amitriptyline [Elavil] 50 mg PO HS 03/17/17 [History Confirmed 03/17/17 Last Taken 03/15/17] Aripiprazole [Abilify] 2 mg PO QAM 03/17/17 [History Confirmed 03/17/17 Last Taken 03/16/17] Atorvastatin [Lipitor] 10 mg PO HS 03/17/17 [History Confirmed 03/17/17 Last Taken 03/15/17] Calcium Carbonate [Calcium] 500 mg PO HS 03/17/17 [History Confirmed 03/17/17 Last Taken 03/15/17] Ergocalciferol (Vitamin D2) [Vitamin D2] 50,000 unit PO WEEKLY 03/17/17 [ History Confirmed 03/17/17 Last Taken 03/13/17] HYDROcodone/APAP 10/325MG [Canaan 10/325Mg] 1 tab PO Q6HP PRN 03/17/17 [History Confirmed 03/17/17 Last Taken Unknown] Hydrochlorothiazide [Oretic] 12.5 mg PO DAILY 03/17/17 [History Confirmed Last Taken 03/16/17] Insulin Regular, Human [Novolin R] 100 unit IJ DAILY 03/17/17 [History Confirmed 03/17/17 Last Taken 03/16/17] LORazepam [Ativan] 1 mg PO Q12HP PRN 03/17/17 [History Confirmed 03/17/17 Last Taken 03/16/17] Lactulose 20 gm PO DAILY 03/17/17 [History Confirmed 03/17/17 Last Taken Unknown ] Linagliptin [Tradjenta] 5 mg PO QAM 03/17/17 [History Confirmed 03/17/17 Last Taken 03/16/17] Magnesium Oxide [Magox 400] 800 mg PO TID 03/17/17 [History Confirmed 03/17/17 Last Taken 03/16/17] Multivitamin [Multivitamins] 1 tab PO DAILY 03/17/17 [History Confirmed Last Taken 03/16/17] Aynor-3/Dha/Epa/Fish Oil [Aynor-3 Fish Oil Softgel] 900 mg PO DAILY 03/17/17 [ History Confirmed 03/17/17 Last Taken 03/16/17] Omeprazole [PriLOSEC] 20 mg PO DAILY 03/17/17 [History Confirmed 03/17/17 Last Taken 03/16/17] Ranitidine HCl [Heartburn Relief] 150 mg PO DAILY 03/17/17 [History Confirmed Last Taken 03/16/17] Sertraline [Zoloft] 150 mg PO DAILY 03/17/17 [History Confirmed 03/17/17 Last Taken 03/16/17] Tacrolimus [Prograf] 3 mg PO BID 03/17/17 [History Confirmed 03/17/17 Last Taken 03/16/17] Tamoxifen Citrate 20 mg PO DAILY 03/17/17 [History Confirmed 03/17/17 Last Taken 03/16/17] predniSONE [Prednisone] 5 mg PO DAILY 03/17/17 [History Confirmed 03/17/17 Last Taken 03/16/17] albuterol sulfate 2.5 mg/3 mL (0.083 %) solution for nebulization 2.5 mg INHALATION ONCE 03/21/17 [History Confirmed 03/21/17 Last Taken Unknown] amitriptyline 50 mg tablet 50 mg PO QHS tab 03/21/17 [History Confirmed Last Taken Unknown] calcium carbonate 500 mg calcium (1,250 mg) chewable tablet 1,500 mg PO QHS tab 03/21/17 [History Confirmed 03/21/17 Last Taken Unknown] insulin glargine 100 unit/mL (3 mL) subcutaneous pen 34 unit SUB-Q BID ml 03/21 [History Confirmed 03/21/17 Last Taken Unknown] insulin regular human 100 unit/mL injection solution See Label Instructions IV .COMPLEX 03/21/17 [History Confirmed 03/21/17 Last Taken Unknown] pen needle, diabetic 31 gauge x 12/16" See Dose Instructions .ROUTE .MEDSUPPLY [History Confirmed 03/21/17 Last Taken Unknown] promethazine 25 mg tablet 25 mg PO Q6H PRN 03/21/17 [History Confirmed 03/21/17 Last Taken Unknown] promethazine 6.25 mg-codeine 10 mg/5 mL syrup 5 ml PO Q6H 03/21/17 [History Confirmed 03/21/17 Last Taken Unknown] Amoxicillin/Potassium Clav [Augmentin] 875 mg PO Q12H #6 tablet 03/24/17 [Rx Last Taken Unknown] Lidocaine [Lidoderm] 1 patch TOPICAL HS #7 patch 03/24/17 [Rx Last Taken Unknown ] Pregabalin [Lyrica] 100 mg PO TID #30 03/24/17 [Rx Last Taken Unknown] morphine SULFATE [Ms Contin] 30 mg PO QAM #10 03/24/17 [Rx Last Taken Unknown] morphine [Ms Contin] 15 mg PO BID #20 03/24/17 [Rx Last Taken Unknown] Medical - DS: Hosp Hospital course: Mrs. Dean is a 57 year old female with h/o renal transplant follows with Dr Llamas, presented to the hospital with pneumonia. She was recently treated for Legionella pna and this time around it was noted that its likely a recurrence of same Pneumonia: Treated with rocephin and levofloxacin, the repeat legionella antigen was negative, patient was growing klebsiella oxytoca in the sputum, ta sensitive, CT showed bilateral infiltrates. Patient responded to treatment well , will compete the course of antibiotics with Augmentin for 3 more days. The patients CM, polyoma virus is pending PCP pneumonia is negative. JOHNY on CKD: Noted to have mild renal failure, follows with nephrology, Dr Llamas followed the patient while in the hospital. creat is 1.6 on discharge. She will need close follow up with nephrology as outpatient. s/p Renal Transplant, on tacrolimus 3mg bid and prednisone 5, levels therapeutic , follow up with Dr Llamas COPD: chr issue, she has chr resp failure and remains on 2 L oxygen She will continue her oxygen at [place] and discharge. no copd exacerbation during this visit. Neuropathy/ Chr pain: On Morphine and hydrocodone, lyrica for pain control. Even though morphine is listed as allergy, she seems to be on it at home, therefore will continue Psych issues/ Pt home medications have been continued, no changes done in home doses Done. her mental health issues were stable during this admission and her meds continued. she was noted to be weak after her Pneumonia and will be transferred to snf for rehab. Discharge diagnosis: Pneumonia, Acute on Chr Renal failure. - Time Spent with Patient Total time spent providing and/or coordinating discharge services: Greater than 30 minutes Medical - DS: Exam - Constitutional Vitals: Vital Signs Temp Pulse Pulse Resp BP Pulse Ox 03/24/17 11:44 92 03/24/17 11:43 80 11 L 03/24/17 11:11 97.2 F 20 104/56 92 03/24/17 08:25 97.6 F 20 112/56 98 03/24/17 07:42 94 03/24/17 07:33 80 16 94 03/24/17 04:00 98.2 F 79 20 129/86 92 03/23/17 23:33 97.9 F 77 20 128/81 94 03/23/17 23:09 75 16 03/23/17 20:00 97.4 F 84 20 153/89 94 03/23/17 19:14 80 18 98 03/23/17 16:00 96.9 F L 18 128/75 94 Intake and Output 03/23/17 03/24/17 03/24/17 21:59 05:59 13:59 Intake Total 1040 / 1040 1475 / 1475 510 / 510 Output Total 700 / 700 700 / 700 Balance 1040 / 1040 775 / 775 -190 / -190 Intake: IV 975 / 975 150 / 150 Sodium Chloride 0.9% 1, 975 / 975 000 ml @ 100 mls/hr IV . Q10H [facility] Rx#:[id number] Oral 1040 / 1040 500 / 500 360 / 360 Output: Void Amount 700 / 700 700 / 700 Other: # Voids 1 # Bowel Movements 1 Weight 254 lb Additional comments: Constitutional; Afebrile, cooperative, alert, not in distress, morbidly obese Eyes- No icterus, , No periorbital swelling Ears- Ext ear normal, hearing normal to conversation. Neck- Midline trachea, supple Respiratory system: Air Entry equal on both sides, No crackles or wheezing, no rhonchi. CVS- Rate rhythm regular, S1,S2 heard, no gallop, no rub. 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 Medical - DS: Data Labs on day of discharge: Labs from last 24 hours 03/24/17 03/24/17 03/19/17 05:15 05:15 08:35 WBC 4.3 L RBC 3.19 L Hgb 10.4 L Hct 30.1 L MCV 94.4 MCH 32.6 MCHC 34.5 RDW 13.8 Plt Count 114 L MPV 7.4 Gran % 68.6 Lymph % (Auto) 24.9 Dolores % (Auto) 4.7 Eos % (Auto) 1.6 Baso % (Auto) 0.2 Gran # 2.9 Lymph # (Auto) 1.1 L Dolores # (Auto) 0.2 Eos # (Auto) 0.1 Baso # (Auto) 0 Sodium 138 Potassium 3.9 Chloride 99 Carbon Dioxide 31 H Anion Gap 8.0 BUN 29 H Creatinine 1.6 H GFR Calculation 35 Glucose 138 H Uric Acid 9.9 H Calcium 8.9 Phosphorus 3.7 Magnesium 2.2 Total Bilirubin 0.2 Direct Bilirubin < 0.2 GGT 25 AST 22 ALT 13 Alkaline Phosphatase 111 Lactate Dehydrogenase 192 Total Protein 5.9 Albumin 3.5 Globulin 2.4 Albumin/Globulin Ratio 1.5 Triglycerides 232 H Tacrolimus 10.7 BK Virus Spec Source BK Virus DNA Quant PCR BK Virus copies/mL 03/18/17 17:26 WBC RBC Hgb Hct MCV MCH MCHC RDW Plt Count MPV Gran % Lymph % (Auto) Dolores % (Auto) Eos % (Auto) Baso % (Auto) Gran # Lymph # (Auto) Dolores # (Auto) Eos # (Auto) Baso # (Auto) Sodium Potassium Chloride Carbon Dioxide Anion Gap BUN Creatinine GFR Calculation Glucose Uric Acid Calcium Phosphorus Magnesium Total Bilirubin Direct Bilirubin GGT AST ALT Alkaline Phosphatase Lactate Dehydrogenase Total Protein Albumin Globulin Albumin/Globulin Ratio Triglycerides Tacrolimus BK Virus Spec Source Plasma BK Virus DNA Quant PCR TNP BK Virus copies/mL Not detected Preliminary micro results at discharge 03/21/17 13:46 Blood Culture - Preliminary Blood Medical - DS: A/P - Patient/Caregiver Discharge Instructions Activity: as per physical therapy, increase activity as tolerated, wear oxygen at all times Diet: Renal/Consistent Carbs Additional Instructions: Follow up with PCP in 7 -10 days Follow up with Dr Llamas nephrology in 7-10 days Go to the ER if worsening shortness of breath. GO to ER if any new concern. ST/ PT/ OT eval and Treat at [place]. Prescriptions: Amoxicillin/Potassium Clav [Augmentin] 875 mg PO Q12H #6 tablet Lidocaine [Lidoderm] 1 patch TOPICAL HS #7 patch morphine [Ms Contin] 15 mg PO BID #20 morphine SULFATE [Ms Contin] 30 mg PO QAM #10 Pregabalin [Lyrica] 100 mg PO TID #30 - Follow up Plan Follow up with: Belia Tamez ARNP [Primary Care Provider] - Darrin Llamas MD [Physician] - Disposition: Xfer SNF Prognosis: Fair Rehab Potential: Fair I certify that the patient requires SNF services: Yes Overall status at discharge: patient is progressing back to baseline Medical - DS: Qual - VTE Deep Vein Thrombosis/Pulmonary Embolism Present on Admission: No
[2017-03-24] MEDS ORDERED: HEPARIN SODIUM,PORCINE/PF 500 UNIT/5 ML SYRINGE IV ONE (13:07)
--- NOTE | 2017-03-24 13:32 | Nephrology Progress Note ---
Subjective Patient information: Note initiated : 03/24/17 at 1:30 pm Service Date, if different from initiated Date: [] Patient: Betsy Dean 57 y/o F admitted on 03/17/17 for Cough, Chest Congestion/Legionella Pneumonia. Chief Complaint: Patient still has some cough. Has back pain. Wishes to go to SNF which I communicated with nursing staff and the program planner. Objective - Vital Signs Vital signs: Vital Signs Temp Pulse Pulse Resp BP Pulse Ox 03/24/17 11:44 92 03/24/17 11:43 80 11 L 03/24/17 11:11 97.2 F 20 104/56 92 03/24/17 08:25 97.6 F 20 112/56 98 03/24/17 07:42 94 03/24/17 07:33 80 16 94 03/24/17 04:00 98.2 F 79 20 129/86 92 03/23/17 23:33 97.9 F 77 20 128/81 94 03/23/17 23:09 75 16 03/23/17 20:00 97.4 F 84 20 153/89 94 03/23/17 19:14 80 18 98 03/23/17 16:00 96.9 F L 18 128/75 94 Intake and Output 03/23/17 03/24/17 03/24/17 21:59 05:59 13:59 Intake Total 1040 / 1040 1475 / 1475 510 / 510 Output Total 700 / 700 700 / 700 Balance 1040 / 1040 775 / 775 -190 / -190 Intake: IV 975 / 975 150 / 150 Sodium Chloride 0.9% 1, 975 / 975 000 ml @ 100 mls/hr IV . Q10H [facility] Rx#:[id number] Oral 1040 / 1040 500 / 500 360 / 360 Output: Void Amount 700 / 700 700 / 700 Other: # Voids 1 # Bowel Movements 1 Weight 254 lb Intake & Output: Intake & Output 03/23/17 03/24/17 03/24/17 21:59 05:59 13:59 Intake Total 1040 / 1040 1475 / 1475 510 / 510 Output Total 700 / 700 700 / 700 Balance 1040 / 1040 775 / 775 -190 / -190 Weight 254 lb Intake: IV 975 / 975 150 / 150 Sodium Chloride 0.9% 1, 975 / 975 000 ml @ 100 mls/hr IV . Q10H [facility] Rx#:[id number] Oral 1040 / 1040 500 / 500 360 / 360 Output: Void Amount 700 / 700 700 / 700 Other: # Voids 1 # Bowel Movements 1 - General Appearance General appearance: well-developed EENT: ATNC Neck: no JVD Respiratory: no kyphosis Cardiology: no murmurs Gastrointestinal: normoactive bowel sounds Integumentary: no rash Neurologic: no focal deficit Musculoskeletal: no deformities - Lab 03/24/17 05:15 03/24/17 05:15 Most recent lab results Calcium 8.9 mg/dl (8.6-10.4) 03/24/17 05:15 Phosphorus 3.7 mg/dL (2.7-4.5) 03/24/17 05:15 Magnesium 2.2 mg/dL (1.6-2.5) 03/24/17 05:15 Assessment and Plan (1) Kidney transplant recipient 1. History of renal transplantation secondary to polycystic kidney disease done at [facility] in 2008 stable allograft function with a baseline serum creatinine of 1.2. She was initially followed by [facility] and subsequently switched over to [facility]. She was in the process of transferring her care to [facility] and I was scheduled to see her 03/23/2017 at the office. She has been on tacrolimus. CMV as well as BK viruses and tacrolimus levels pending. Creatinine levels had improved but now slightly worse and that is related to diuresis. She is diuresing well. 2. Legionella pneumonia. She is currently on antibiotics. Would benefit from working up for PCP. 3. Anemia. iron studies ok. 2. Obstructive sleep apnea. 3. Type 2 diabetes. 4. Neuropathy. 5. Hyperlipidemia. 6. Gastroesophageal reflux disease. 7. Anxiety disorder. Status: Chronic Comment: 1. History of renal transplantation secondary to polycystic kidney disease done at [facility] in 2008 stable allograft function with a baseline serum creatinine of 1.2. She was initially followed by [facility] and subsequently switched over to [facility]. She was in the process of transferring her care to nm and I was scheduled to see her 03/23/2017 at the office. She has been on tacrolimus and the level came back at 10.7. CMV as well as BK viruses and tacrolimus levels pending. Creatinine levels had improved but now slightly worse and that is related to diuresis. I will cut the tacrolimus to 2.5mg po bid. 2. Pneumonia. She is currently on antibiotics. Would benefit from working up for PCP. 3. Anemia. iron studies ok. 2. Obstructive sleep apnea. 3. Type 2 diabetes. 4. Neuropathy. 5. Hyperlipidemia. 6. Gastroesophageal reflux disease. 7. Anxiety disorder.
[2017-03-24] MEDS ORDERED: TACROLIMUS 1 MG CAPSULE PO SCH (19:00)
[2017-03-24] MEDS ORDERED: TACROLIMUS 0.5 MG CAPSULE PO SCH (19:00)
== END 2017-03-24 14:00 | DRG 178 ==
LOC: ED 18:07 → MEDSUR 22:20
PROVIDERS: ADMIT Internal Medicine; ATTEND Internal Medicine

== ENCOUNTER 2018-03-13 07:30 | Inpatient (IN) ==
[2018-03-07 13:09] LABS: Appearance,Urine CLEAR; Bilirubin,Urine NEG (NEG); Color,Urine STRAW; Glucose,Urine (UA) NEGATIVE (NEG); Leukocyte Esterase,Urine NEG /uL (NEG); Protein,Urine NEG (NEG); Specific Gravity,Urine 1.009 (1.000-1.035); Urine Blood NEG mg/dL (<0.03); Urobilinogen,Urine NEG (NEG)
[2018-03-07 13:38] LABS: Blood Urea Nitrogen 62 mg/dl (6-20)
[2018-03-07 13:43] LABS: Basophils # (Auto) 0 K/mcL (0.0-0.3); Basophils % (Auto) 0.3 % (0.0-2.0); Eosinophils # (Auto) 0.1 K/mcL (0.0-0.7); Eosinophils % (Auto) 1.8 % (0.0-7.0); Granulocytes % (Auto) 68.1 % (38.0-78.0); Lymphocytes # (Auto) 1.1 K/mcL (1.5-4.8); Lymphocytes % (Auto) 24.4 % (15.5-49.0); Mean Cell Volume 93.1 fL (80.0-100.0); Mean Corpuscular HGB Conc 34.6 g/dL (31.0-36.0); Mean Corpuscular Hemoglobin 32.2 pg (26.0-34.0); Monocytes # (Auto) 0.2 K/mcL (0.1-0.9); Monocytes % (Auto) 5.4 % (1.0-12.0); Platelet Count 114 K/mcL (140-440); RBC 3.85 M/mcL (4.00-5.20); Red Cell Distribution Width 13.7 % (11.5-14.5)
[~2018-03-13 07:30] MED LIST changes: +ACETAMINOPHEN 500 MG TABLET PO SCH; +CELECOXIB 200 MG CAPSULE PO SCH; -LEVOFLOXACIN 250 MG/50 ML BAG IV ONE; +PREGABALIN 100 MG CAPSULE PO SCH; +ceFAZolin 1 GM VIAL IV SCH; +oxyCODONE 10 MG TAB.ER.12H PO SCH
[2018-03-13] MEDS ORDERED: ACETAMINOPHEN 325 MG TABLET PO PRN (07:36)
[2018-03-13] MEDS ORDERED: HYDROmorphone 2 MG/ML VIAL IV PRN (07:36)
[2018-03-13] MEDS ORDERED: MAGNESIUM HYDROXIDE 30 ML ORAL.SUSP PO PRN (07:36)
[2018-03-13] MEDS ORDERED: TRANEXAMIC ACID 1,000 MG/10 ML VIAL IV ONE ×2 (07:36→10:15)
[2018-03-13] MEDS ORDERED: ONDANSETRON 4 MG/2 ML VIAL IV PRN ×2 (07:36→11:31)
[2018-03-13] MEDS ORDERED: POLYETHYLENE GLYCOL 3350 17 GM PACKET PO PRN (07:36)
[2018-03-13] MEDS ORDERED: BISACODYL 10 MG SUPP.RECT PR PRN ×2 (07:36→07:38)
[2018-03-13] MEDS ORDERED: BENZOCAINE/MENTHOL 1 LOZENGE PO PRN ×2 (07:36→11:31)
[2018-03-13] MEDS ORDERED: FLEETS ADULT ENEMA PR PRN ×2 (07:36→07:38)
[2018-03-13] MEDS ORDERED: DEXTROSE 31 GM ORAL.SUSP PO PRN (07:38)
[2018-03-13] MEDS ORDERED: PROMETHAZINE 25 MG TABLET PO PRN (07:38)
[2018-03-13] MEDS ORDERED: LORazepam 1 MG TABLET PO PRN (07:38)
[2018-03-13] MEDS ORDERED: HYDROcodone/APAP 10/325MG TABLET PO PRN (07:38)
--- NOTE | 2018-03-13 07:43 | Brief Operative Note ---
Date of procedure: 03/13/18 Pre-op diagnosis: Left knee djd severe Post-op diagnosis: same Procedure: left tka with johnathon robot Grafts/Implants: Yes Anesthesia: GETA Findings: severe djd Complications Description: 03/13/18 07:42 none Surgeon: Prosper Riggins Hand Packager: Christopher Carbajal Estimated blood loss (cc): 20 Tourniquet Time (Minutes): 50 Specimens Removed/Pathology: none sent Condition: stable Disposition: PACU
[2018-03-13] MEDS ORDERED: KETOROLAC 30 MG, ROPIVACAINE HCL/PF 49.5 ML, EPINEPHrine 0.5 MG, 0.9 % SODIUM CHLORIDE ... IJ ONE (08:00)
[2018-03-13] MEDS ORDERED: ALBUTEROL SULFATE 1 PUFF INHALER INH PRN (08:44)
[2018-03-13] MEDS ORDERED: ERGOCALCIFEROL (VITAMIN D2) 50,000 UNIT CAPSULE PO SCH (09:00)
[2018-03-13] MEDS ORDERED: ASPIRIN 325 MG ENTERIC COATED TABLET PO SCH (09:00)
[2018-03-13] MEDS: PREGABALIN 100 MG CAPSULE PO SCH ×3 (09:04→21:18)
[2018-03-13] MEDS ORDERED: PHENYLEPHRINE 10 MG/ML VIAL IV ONE (10:15)
[2018-03-13] MEDS ORDERED: GLYCOPYRROLATE 0.2 MG/ML VIAL IV ONE (10:15)
[2018-03-13] MEDS ORDERED: DEXAMETHASONE 10 MG/ML VIAL IV ONE (10:15)
[2018-03-13] MEDS ORDERED: MIDAZOLAM 2 MG/2 ML VIAL IV ONE (10:15)
[2018-03-13] MEDS ORDERED: ROPIVACAINE HCL/PF 30 ML VIAL IJ ONE (10:15)
[2018-03-13] MEDS ORDERED: LIDOCAINE HCL/PF 100 MG/5 ML SYRINGE IV ONE (10:15)
[2018-03-13] MEDS ORDERED: PROPOFOL 200 MG/20 ML VIAL IV ONE (10:15)
[2018-03-13] MEDS ORDERED: ePHEDrine 50 MG/ML AMPUL IV ONE (10:15)
[2018-03-13] MEDS ORDERED: ONDANSETRON 4 MG/2 ML VIAL IV ONE (10:15)
[2018-03-13] MEDS ORDERED: GENTAMICIN SULFATE 800 MG/20 ML VIAL IR ONE (10:56)
[2018-03-13] MEDS ORDERED: FLUMAZENIL 0.1 MG/ML ML IV PRN (11:31)
[2018-03-13] MEDS ORDERED: IPRATROPIUM/ALBUTEROL 3 ML AMPUL.NEB NEB PRN (11:31)
[2018-03-13] MEDS ORDERED: diphenhydrAMINE 50 MG/ML VIAL IV PRN (11:31)
[2018-03-13] MEDS ORDERED: NALOXONE HCL 0.4 MG/ML VIAL IV PRN (11:31)
[2018-03-13] MEDS ORDERED: PROMETHAZINE 25 MG/ML VIAL IV PRN (11:31)
[2018-03-13] MEDS ORDERED: LACTATED RINGERS 250 ML IV PRN (11:31)
[2018-03-13] MEDS ORDERED: fentaNYL 100 MCG/2 ML VIAL IV PRN (11:31)
[2018-03-13] MEDS ORDERED: MEPERIDINE 25 MG/ML SYRINGE IV PRN (11:31)
[2018-03-13] MEDS ORDERED: LACTATED RINGERS 1,000 ML IV SCH (11:45)
--- NOTE | 2018-03-13 12:39 | XRay Report ---
HISTORY: Reason for Exam:Post-Op Total Knee FINDINGS: There is a well positioned total knee prosthesis. No fracture is present. There are a few vascular calcifications in the popliteal fossa. IMPRESSION: Well-positioned left knee prosthesis Interpreted and Authenticated by: Flakito Polo 03/13/18
[2018-03-13] MEDS: SERTRALINE 50 MG TABLET PO SCH (15:19)
[2018-03-13] MEDS: DOCUSATE SODIUM 100 MG CAPSULE PO SCH ×2 (15:20→21:18)
[2018-03-13] MEDS: LACTULOSE 20 GM/30 ML ORAL.SOL PO SCH (15:20)
[2018-03-13] MEDS: predniSONE 5 MG TABLET PO SCH (15:20)
[2018-03-13] MEDS: MULTIVIT,THER IRON,CA,FA & MIN 1 TABLET PO SCH (15:21)
[2018-03-13] MEDS: MAGNESIUM OXIDE 400 MG TABLET PO SCH ×3 (15:21→21:18)
[2018-03-13] MEDS: ASPIRIN 325 MG ENTERIC COATED TABLET PO SCH ×2 (15:21→21:18)
[2018-03-13] MEDS: POLYETHYLENE GLYCOL 3350 17 GM PACKET PO SCH (15:21)
[2018-03-13] MEDS: SENNOSIDES/DOCUSATE SODIUM 1 TAB TABLET PO SCH ×2 (15:22→21:18)
[2018-03-13] MEDS: NALOXEGOL OXALATE 25 MG PO SCH (15:22)
[2018-03-13] MEDS: KETOROLAC 15 MG/ML VIAL IV SCH ×2 (15:23→18:48)
[2018-03-13] MEDS: 0.9 % SODIUM CHLORIDE 10 ML SYRINGE IV SCH ×2 (15:23→21:23)
[2018-03-13] MEDS: 0.45 % SODIUM CHLORIDE 1,000 ML IV SCH ×2 (15:30→19:41)
--- NOTE | 2018-03-13 16:05 | Operative Note ---
DATE OF OPERATION: 03/13/2018 PREOPERATIVE DIAGNOSIS: A very pleasant, elderly female with severe left knee degenerative arthritis. POSTOPERATIVE DIAGNOSIS: A very pleasant, elderly female with severe left knee degenerative arthritis. PROCEDURE: Left total knee arthroplasty. SURGEON: Prosper Riggins M.D. HAT BRIM AND CROWN LAMINATING OPERATOR: Christopher Carbajal PA-C. ANESTHESIA: General LMA anesthesia. COMPLICATIONS: None. DESCRIPTION OF PROCEDURE: The patient was brought to the operating room and put to sleep with general LMA anesthesia. Once asleep, the patient had the left leg sterilely prepped and draped in the usual sterile fashion. A time-out was performed confirming the operative site. We then placed Ioban over the skin, exsanguinated the leg and inflated the tourniquet to 250 pounds of pressure. We made a midline incision, a midvastus approach was performed. We exposed the joint showing severe arthritis of the knee. 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 This bony fragment was removed. Severe arthritis throughout the knee was quite evident. No signs of infection. We proceeded with a total knee arthroplasty using the ILIA robot. We completed the ILIA robot setup, put two pins above and below the knee and placed the arrays. We registered the center of hip rotation, registered thirty points on the femur and tibia and the medial and lateral malleolus. Intra-articular pins were registered, and the robot was registered. Once this was completed, we then brought the robot in and made the cuts as the knee was balanced, reestablishing alignment. We irrigated the knee and this then made the knee completely stable. After putting the trials in, the 13 was most stable, still gaining extension of 3 degrees. She started with a hyperextension of about 12 degrees, reestablishing stability throughout the range of motion was done. We irrigated thoroughly and then placed the components in the knee. This reestablished alignment of the leg. We prepared the patella. It measured 22 mm, cut to 13 mm, placed a 33 mm patellar button. A small chamfer cut was made. We cemented into place the size 4 tibial baseplate and size 3 femur. This seemed to fit very well with a 13 poly and a 33 mm patellar button. We then released any soft tissue that was impinging and then repaired the midvastus approach. Once this was done with a Stratafix, the patient then had the skin closed with 2-0 Vicryl and adhesive closure. The patient tolerated this well. There was no complication. Tourniquet time was approximately 50 minutes. Blood loss was 20 mL. RBH:natali Job ID: [id number] Doc ID: [id number] Prosper Riggins MD
[2018-03-13] MEDS ORDERED: ceFAZolin 1 GM VIAL IV SCH (18:00)
[2018-03-13] MEDS: ceFAZolin 1 GM VIAL IV SCH (18:48)
[2018-03-13] MEDS: HYDROcodone/APAP 10/325MG TABLET PO PRN (19:14)
[2018-03-13] MEDS ORDERED: KETOROLAC 15 MG/ML VIAL IV PRN (19:29)
[2018-03-13] MEDS ORDERED: SENNOSIDES 1 TABLET PO SCH (21:00)
[2018-03-13] MEDS: ATORVASTATIN 20 MG TABLET PO SCH (21:17)
[2018-03-13] MEDS: INSULIN GLARGINE, HUMAN 1 UNIT/0.01 ML SQ SCH (21:18)
[2018-03-13] MEDS: AMITRIPTYLINE 25 MG TABLET PO SCH (21:18)
[2018-03-13] MEDS: CALCIUM (OYSTER SHELL) 500 MG TABLET PO SCH (21:18)
[2018-03-13] MEDS: TACROLIMUS 1 MG CAPSULE PO SCH (21:31)
[2018-03-13] MEDS: TEMAZEPAM 15 MG CAPSULE PO PRN (21:31)
[2018-03-14] MEDS: ceFAZolin 1 GM VIAL IV SCH (01:32)
[2018-03-14] MEDS: 0.45 % SODIUM CHLORIDE 1,000 ML IV SCH ×2 (03:03→17:01)
[2018-03-14] MEDS: HYDROcodone/APAP 10/325MG TABLET PO PRN ×5 (03:42→23:41)
[2018-03-14] MEDS: 0.9 % SODIUM CHLORIDE 10 ML SYRINGE IV SCH ×3 (05:34→20:17)
[2018-03-14] MEDS: OMEPRAZOLE 20 MG CAPSULE PO SCH (08:16)
[2018-03-14] MEDS: LEVOTHYROXINE 25 MCG TABLET PO SCH (08:16)
[2018-03-14] MEDS: predniSONE 5 MG TABLET PO SCH (08:16)
[2018-03-14] MEDS: INSULIN GLARGINE, HUMAN 1 UNIT/0.01 ML SQ SCH ×2 (08:54→20:10)
[2018-03-14] MEDS: SENNOSIDES/DOCUSATE SODIUM 1 TAB TABLET PO SCH ×3 (08:55→20:16)
[2018-03-14] MEDS: FAMOTIDINE 20 MG TABLET PO SCH (08:57)
[2018-03-14] MEDS: SERTRALINE 50 MG TABLET PO SCH (08:57)
[2018-03-14] MEDS: FISH OIL 1,000 MG CAPSULE PO SCH (08:58)
[2018-03-14] MEDS: PREGABALIN 100 MG CAPSULE PO SCH ×3 (08:58→20:14)
[2018-03-14] MEDS: MULTIVIT,THER IRON,CA,FA & MIN 1 TABLET PO SCH (08:59)
[2018-03-14] MEDS: DOCUSATE SODIUM 100 MG CAPSULE PO SCH ×2 (08:59→20:13)
[2018-03-14] MEDS: ASPIRIN 325 MG ENTERIC COATED TABLET PO SCH ×2 (09:00→20:11)
[2018-03-14] MEDS: POLYETHYLENE GLYCOL 3350 17 GM PACKET PO SCH ×2 (09:00→09:12)
[2018-03-14] MEDS: LACTULOSE 20 GM/30 ML ORAL.SOL PO SCH (09:00)
[2018-03-14] MEDS: TACROLIMUS 1 MG CAPSULE PO SCH ×2 (09:01→20:10)
[2018-03-14] MEDS: NALOXEGOL OXALATE 25 MG PO SCH (09:02)
[2018-03-14] MEDS: MAGNESIUM OXIDE 400 MG TABLET PO SCH ×3 (09:12→20:11)
--- NOTE | 2018-03-14 12:51 | Orthopedic Progress Note ---
Subjective Patient information: Note initiated : 03/14/18 at 12:50 pm Service Date, if different from initiated Date: [] Patient: Betsy Dean 58 y/o F admitted on 03/13/18 for Left Total Knee Arthroplasty [facility]. Chief Complaint: doing well and eating and drinking and no cp and no sob[] Objective Vital signs: Vital Signs Temp Pulse Pulse Resp BP BP Pulse Ox 03/14/18 12:27 97.8 F 73 16 120/78 96 03/14/18 09:00 76 03/14/18 08:05 97.6 F 76 16 121/74 96 03/14/18 03:18 97.9 F 65 16 102/66 93 03/14/18 03:00 93 03/13/18 23:23 97.6 F 80 16 97/63 97 03/13/18 23:00 97 03/13/18 22:12 79 16 97 03/13/18 20:00 97.5 F 81 16 118/73 95 03/13/18 18:50 91 03/13/18 16:42 128/77 98 03/13/18 15:44 124/79 99 03/13/18 15:15 113/59 99 03/13/18 14:44 96/67 97 03/13/18 14:29 112/73 97 03/13/18 14:16 111/59 98 03/13/18 14:00 111/67 96 03/13/18 13:47 96.2 F L 66 16 99/57 95 03/13/18 13:45 99/57 94 03/13/18 13:15 95 03/13/18 13:00 96.5 F L 69 16 112/71 94 Intake and Output 03/13/18 03/14/18 03/14/18 21:59 05:59 13:59 Intake Total 300 / 300 250 / 250 1500 / 1500 Output Total 350 / 350 575 / 575 Balance -50 / -50 -325 / -325 1500 / 1500 Intake: IV 1000 / 1000 Sodium Chloride 0.45% 1,000 ml 1000 / 1000 @ 100 mls/hr IV .Q10H [facility] Rx#: [id number] Oral 300 / 300 250 / 250 500 / 500 Output: Urine Catheter Amount 575 / 575 Void Amount 350 / 350 Other: Meal Dinner Breakfast Percent of Meal Consumed 100% Feeding Ability Independent Independent Weight 236 lb Intake & Output: Intake & Output 03/13/18 03/14/18 03/14/18 21:59 05:59 13:59 Intake Total 300 / 300 250 / 250 1500 / 1500 Output Total 350 / 350 575 / 575 Balance -50 / -50 -325 / -325 1500 / 1500 Weight 236 lb Intake: IV 1000 / 1000 Sodium Chloride 0.45% 1,000 ml 1000 / 1000 @ 100 mls/hr IV .Q10H [facility] Rx#: [id number] Oral 300 / 300 250 / 250 500 / 500 Output: Urine Catheter Amount 575 / 575 Void Amount 350 / 350 Other: Meal Dinner Breakfast Percent of Meal Consumed 100% Feeding Ability Independent Independent Incision: Yes healing Incision clean and dry: Yes Dressing: Yes clean Weight bearing status: full Neurological exam IM: Yes oriented X3, Yes neurovascular intact Extremities exam IM: Yes Foot pink and warm, Yes neurovascular intact - Allied Health Allied health notes reviewed: case management (dc to [facility] when able) - Labs CBC & BMP: 03/14/18 04:13 03/07/18 11:55 Labs: Orthopedic Labs 03/07/18 11:55 PT 13.4 INR 1.0 APTT 25 03/14/18 03/07/18 04:13 11:55 Hgb 12.4 Hct 28.8 L 35.9 L
--- NOTE | 2018-03-14 12:54 | Discharge Summary ---
Ortho Discharge - TKA - Patient Instructions Diet: Regular Diet Activity: activity as tolerated, weight bearing as tolerated Total Knee Protocol: For Total Knee: Start ROM VERN with stationary bike or rocking chair. Work on gaining full extension of knee. Posterior dislocation precautions provided. Hip abductor strengthening and gait training instructions provided. Apply Cryocuff as instructed. Dressing Care: No dressing - open to air - Follow Up Plan Follow Up Appointments: Christopher Carbajal PA-C [Physician Register Repairer] - 03/28/18 1:10 pm Disposition: Xfer SNF Prognosis: Good Rehab Potential: Good I certify that the patient requires SNF services: Yes Overall status at discharge: patient is progressing back to baseline - Orders For Discharge Prescriptions: HYDROcodone/APAP 10/325MG [[place] 10-325Mg] 10 - 20 mg PO Q4HP PRN #60 tab PRN Reason: Pain Level 3-6 Additional Discharge Orders: Physical Therapy at Discharge - TKA Location: Determined By Patient CPM Discharge Order Location: Determined By Patient Toilet Riser Discharge Order Location: Determined By Patient Walker Location: Determined By Patient
[2018-03-14] MEDS: TEMAZEPAM 15 MG CAPSULE PO PRN (20:11)
[2018-03-14] MEDS: ATORVASTATIN 20 MG TABLET PO SCH (20:11)
[2018-03-14] MEDS: CALCIUM (OYSTER SHELL) 500 MG TABLET PO SCH (20:12)
[2018-03-14] MEDS: AMITRIPTYLINE 25 MG TABLET PO SCH (20:13)
[2018-03-15] MEDS: 0.45 % SODIUM CHLORIDE 1,000 ML IV SCH ×3 (00:25→21:56)
[2018-03-15] MEDS: HYDROcodone/APAP 10/325MG TABLET PO PRN ×3 (03:42→17:37)
[2018-03-15] MEDS: 0.9 % SODIUM CHLORIDE 10 ML SYRINGE IV SCH ×3 (04:45→22:07)
[2018-03-15] MEDS: LEVOTHYROXINE 25 MCG TABLET PO SCH (07:28)
[2018-03-15] MEDS: OMEPRAZOLE 20 MG CAPSULE PO SCH (07:28)
[2018-03-15] MEDS: SENNOSIDES/DOCUSATE SODIUM 1 TAB TABLET PO SCH ×2 (08:50→22:06)
[2018-03-15] MEDS: FAMOTIDINE 20 MG TABLET PO SCH (08:51)
[2018-03-15] MEDS: MAGNESIUM OXIDE 400 MG TABLET PO SCH ×3 (08:51→22:06)
[2018-03-15] MEDS: MULTIVIT,THER IRON,CA,FA & MIN 1 TABLET PO SCH (08:51)
[2018-03-15] MEDS: PREGABALIN 100 MG CAPSULE PO SCH ×3 (08:52→22:06)
[2018-03-15] MEDS: predniSONE 5 MG TABLET PO SCH (08:52)
[2018-03-15] MEDS: FISH OIL 1,000 MG CAPSULE PO SCH (08:52)
[2018-03-15] MEDS: DOCUSATE SODIUM 100 MG CAPSULE PO SCH ×2 (08:52→22:04)
[2018-03-15] MEDS: ASPIRIN 325 MG ENTERIC COATED TABLET PO SCH ×2 (08:53→22:04)
[2018-03-15] MEDS: INSULIN GLARGINE, HUMAN 1 UNIT/0.01 ML SQ SCH ×2 (08:54→22:05)
[2018-03-15] MEDS: LACTULOSE 20 GM/30 ML ORAL.SOL PO SCH (08:54)
[2018-03-15] MEDS: SERTRALINE 50 MG TABLET PO SCH (09:02)
[2018-03-15] MEDS: NALOXEGOL OXALATE 25 MG PO SCH (09:03)
[2018-03-15] MEDS: TACROLIMUS 1 MG CAPSULE PO SCH ×2 (09:10→22:07)
[2018-03-15] MEDS: POLYETHYLENE GLYCOL 3350 17 GM PACKET PO SCH (09:11)
--- NOTE | 2018-03-15 09:51 | Orthopedic Progress Note ---
Subjective Patient information: Note initiated : 03/15/18 at 9:50 am Service Date, if different from initiated Date: [] Patient: Betsy Dean 58 y/o F admitted on 03/13/18 for Left Total Knee Arthroplasty [facility]. Chief Complaint: [slept well and is walking 100-200 feet] Objective Vital signs: Vital Signs Temp Pulse Resp BP BP Pulse Ox 03/15/18 08:00 84 18 95 03/15/18 07:35 98.1 F 84 18 138/87 95 03/15/18 07:30 94 03/15/18 03:25 97.6 F 71 16 128/81 90 03/15/18 03:00 90 03/14/18 23:38 98.0 F 67 16 114/73 93 03/14/18 23:00 93 03/14/18 20:00 97.5 F 74 18 152/83 96 03/14/18 19:00 96 03/14/18 18:00 98.6 F 71 20 129/75 95 03/14/18 17:18 97.6 F 72 16 120/72 92 03/14/18 15:00 97 03/14/18 13:25 94 03/14/18 13:00 73 03/14/18 12:27 97.8 F 73 16 120/78 96 03/14/18 11:00 95 Intake and Output 03/14/18 03/15/18 03/15/18 21:59 05:59 13:59 Intake Total 450 / 450 525 / 525 500 / 500 Output Total 380 / 380 650 / 650 600 / 600 Balance 70 / 70 -125 / -125 -100 / -100 Intake: Oral 450 / 450 525 / 525 500 / 500 Output: Void Amount 380 / 380 650 / 650 600 / 600 Other: Meal Dinner Breakfast Percent of Meal Consumed 100% 100% Feeding Ability Independent Independent # Voids 1 Weight 240 lb Intake & Output: Intake & Output 03/14/18 03/15/18 03/15/18 21:59 05:59 13:59 Intake Total 450 / 450 525 / 525 500 / 500 Output Total 380 / 380 650 / 650 600 / 600 Balance 70 / 70 -125 / -125 -100 / -100 Weight 240 lb Intake: Oral 450 / 450 525 / 525 500 / 500 Output: Void Amount 380 / 380 650 / 650 600 / 600 Other: Meal Dinner Breakfast Percent of Meal Consumed 100% 100% Feeding Ability Independent Independent # Voids 1 Incision: Yes healing Incision clean and dry: Yes Dressing: Yes clean Weight bearing status: full Neurological exam IM: Yes neurovascular intact Extremities exam IM: Yes Foot pink and warm, Yes neurovascular intact - Allied Health Allied health notes reviewed: social work (dc to snf in am) - Labs CBC & BMP: 03/14/18 04:13 03/07/18 11:55 Labs: Orthopedic Labs 03/07/18 11:55 PT 13.4 INR 1.0 APTT 25 03/14/18 03/07/18 04:13 11:55 Hgb 12.4 Hct 28.8 L 35.9 L
[2018-03-15] MEDS: AMITRIPTYLINE 25 MG TABLET PO SCH (22:04)
[2018-03-15] MEDS: CALCIUM (OYSTER SHELL) 500 MG TABLET PO SCH (22:05)
[2018-03-15] MEDS: ATORVASTATIN 20 MG TABLET PO SCH (22:05)
[2018-03-16] MEDS: 0.45 % SODIUM CHLORIDE 1,000 ML IV SCH (05:54)
[2018-03-16] MEDS: 0.9 % SODIUM CHLORIDE 10 ML SYRINGE IV SCH (05:55)
[2018-03-16] MEDS: OMEPRAZOLE 20 MG CAPSULE PO SCH (07:36)
[2018-03-16] MEDS: LEVOTHYROXINE 25 MCG TABLET PO SCH (07:37)
[2018-03-16] MEDS: FISH OIL 1,000 MG CAPSULE PO SCH (07:37)
[2018-03-16] MEDS: MAGNESIUM OXIDE 400 MG TABLET PO SCH (07:37)
[2018-03-16] MEDS: PREGABALIN 100 MG CAPSULE PO SCH (07:37)
[2018-03-16] MEDS: MULTIVIT,THER IRON,CA,FA & MIN 1 TABLET PO SCH (07:37)
[2018-03-16] MEDS: FAMOTIDINE 20 MG TABLET PO SCH (07:38)
[2018-03-16] MEDS: LACTULOSE 20 GM/30 ML ORAL.SOL PO SCH ×2 (07:38→07:43)
[2018-03-16] MEDS: SERTRALINE 50 MG TABLET PO SCH (07:38)
[2018-03-16] MEDS: POLYETHYLENE GLYCOL 3350 17 GM PACKET PO SCH (07:38)
[2018-03-16] MEDS: ASPIRIN 325 MG ENTERIC COATED TABLET PO SCH (07:38)
[2018-03-16] MEDS: predniSONE 5 MG TABLET PO SCH (07:38)
[2018-03-16] MEDS: DOCUSATE SODIUM 100 MG CAPSULE PO SCH (07:38)
[2018-03-16] MEDS: SENNOSIDES/DOCUSATE SODIUM 1 TAB TABLET PO SCH (07:39)
[2018-03-16] MEDS: NALOXEGOL OXALATE 25 MG PO SCH (07:39)
[2018-03-16] MEDS: TACROLIMUS 1 MG CAPSULE PO SCH (07:40)
[2018-03-16] MEDS: INSULIN GLARGINE, HUMAN 1 UNIT/0.01 ML SQ SCH (08:03)
[2018-03-16] MEDS: HYDROcodone/APAP 10/325MG TABLET PO PRN (10:23)
--- NOTE | 2018-03-21 10:13 | Discharge Summary ---
DATE OF ADMISSION: 03/13/2018 DATE OF DISCHARGE: 03/16/2018 ADMITTING DIAGNOSIS: Left knee degenerative osteoarthritis. DISCHARGE DIAGNOSIS: Left knee degenerative osteoarthritis status post left total knee arthroplasty. DISCHARGE CONDITION: Stable. CONSULTATIONS: None. PROCEDURE PERFORMED: Left total knee arthroplasty was completed on the date of admission. The procedure went without complications and there was minimal blood loss. Following the procedure the patient was taken to recovery room in stable condition. When deemed stable, was taken to the hospital floor for further observation and recovery. HISTORY OF PRESENT ILLNESS: This pleasant patient has exhausted conservative care measures in the office that has included trials with anti-inflammatories, pain medications, injections and physical therapy. The patient has discussed non-operative and operative options with Dr. Riggins at length. Due to the exhausting conservative measures the patient desired to proceed forth with operative care. HOSPITAL COURSE: The patient remained stable throughout the hospital course and exhibited normal neurovascular examinations throughout the stay. The patient worked with physical therapy per standard protocols. The patient had no incidents during the hospital course. The patient also had a stable physical exam upon discharge. The patient did not meet the discharge criteria for home and did require fpc services and was discharged in a stable state to fpc facility. DISCHARGE PHYSICAL EXAMINATION: VITAL SIGNS: Stable as above. GENERAL: Patient is awake, alert and oriented x3. HEENT: Head was normocephalic. NECK: Supple, no adenopathy or thyromegaly. CHEST: CTA, no wheezing, rhonchi or rales. HEART: NSR, no gallops, rubs or murmurs. MUSCULOSKELETAL: Lower extremities revealed grossly intact motor exam. NEUROLOGIC: Deep tendon response and light touch, motor, neurosensory exam was stable. SKIN: The incision was intact and the dressing had been changed to the Acticoat dressing. There were no abnormal skin markings, lesions, erythema, rashes or other skin breakdown. DISCHARGE INSTRUCTIONS/MEDICATIONS: The patient received our standard written discharge instruction sheet. These instructions included information regarding weightbearing status, activity level, diet, wound care, physical therapy instructions, bathing restrictions, shower recommendations, follow-up guidelines, driving restrictions and monitoring the wound for signs of infection that could include but not necessarily to fevers above 101.5, sweats, chills, redness, increased pain or drainage. Should any of these occur the patient was educated to contact our office at once. MEDICATIONS: The patient was restarted on normal primary care medications. Patient was also prescribed [place] 10/325 mg with instructions for 1 to 2 tabs by mouth every 4 to 6 hours as needed for pain, quantity 75 with 2 refills. The patient will be placed on 325 mg aspirin, 1 a day for 30 days post surgery. [facility] will monitor the patient's PT/INR. FOLLOWUP: Patient will follow up at [facility] 2 weeks from surgery for a postop wound check and staple removal. They will be able to certain follow up sooner with any problems or concerns. BAP:natali Job ID: [id number] Doc ID: [id number] Christopher Carbajal PA-C
== END 2018-03-16 11:06 | DRG 470 ==
LOC: MEDSUR 07:58
PROVIDERS: ADMIT Orthopaedic Surgery; ATTEND Orthopaedic Surgery